=== PATIENT | female | born 1945 | race African-American/Black ===

== ENCOUNTER 2022-07-03 13:52 | Inpatient (IN) | payer MEDICARE, SELFPAY ==
[2022-07-03] VITALS (46 sets, daily range): BP systolic 148–164; BP diastolic 87–101; PULSE 52–112; RESP 10–28; TEMP 36.3–36.5; O2SAT 96–97; BMI 26.6
--- NOTE | 2022-07-03 14:11 | ECG_ITS ---
[facility] Test Date: 2022-07-03 Pat Name: Latonia Major Department: Room: Gender: Female Bioinformatics Associate: : 1945 Requested By: Darek Lopez Order Number: [id number] Yoel MD: Vivian Niño M.D. Measurements Intervals Merkel Rate: 65 P: 64 OK: 184 QRS: -11 QRSD: 100 T: -11 QT: 405 QTc: 423 Interpretive Statements SINUS RHYTHM VOLTAGE CRITERIA FOR LVH [MEETS CRITERIA IN ONE OF: R(aVL), S(V1), R(V5), R(V5/V6)+S(V1)] POSSIBLE SEPTAL MYOCARDIAL INFARCTION , OF INDETERMINATE AGE [30 ms Q WAVE IN V1/V2] No previous ECG available for comparison Electronically Signed On 07-03-2022 22:07:41 EMERGENCY REGISTRAR by Vivian Niño M.D. [id number]
--- NOTE | 2022-07-03 14:11 | CTR_ITS ---
PROCEDURE INFORMATION: Exam: CT Head Without Contrast Exam date and time: 07/03/2022 2:22 PM Age: 77 years old Clinical indication: Stroke-like symptoms; Altered mental status/memory loss; Additional info: Symptoms of acute stroke TECHNIQUE: Imaging protocol: Computed tomography of the head without contrast. Radiation optimization: All CT scans at this facility use at least one of these dose optimization techniques: automated exposure control; mA and/or kV adjustment per patient size (includes targeted exams where dose is matched to clinical indication); or iterative reconstruction. Other protocol: This patient has received 0 known CTs and 0 known cardiac nuclear medicine studies in the 12 months prior to the current study. Other technique: STROKE PROTOCOL was implemented. COMPARISON: No relevant prior studies available. RADIATION DOSE METRICS: Total DLP (mGy-cm): 1053.84 FINDINGS: Brain: Moderate to severe central and cortical atrophy as well as small vessel ischemic disease. No intracranial hemorrhage. No areas of abnormal edema. No midline shift. Cerebral ventricles: No ventriculomegaly. Paranasal sinuses: Visualized sinuses are unremarkable. No fluid levels. Mastoid air cells: Visualized mastoid air cells are well aerated. Bones/joints: Unremarkable. No acute fracture. Soft tissues: Unremarkable. CT/CT head thrombolytic [id number] IMPRESSION: No acute intracranial abnormality. ASSESSMENT: ASPECTS ([place] Stroke Program Early CT Score) is 10.
--- NOTE | 2022-07-03 14:12 | PC.PHAR ---
pts son states the pt takes no rx or otc medications-states they were just passing through [place]-states they try to stay away from medications
--- NOTE | 2022-07-03 14:23 | W.ED.WEAKNES ---
HPI - Weakness General: Chief complaint: Weakness Stated complaint: weakness Time Seen by Provider: 07/03/22 13:54 History of Present Illness: 77-year-old female no regular medical care presenting to the emergency department as a code stroke. Son states that at 1330 hrs. today the patient had a change in her speech. He describes a change in speech as slurring of words and short phrases rather than full sentences with a tired appearance. States that this is new for her as of that time. Additionally has been complaining of some left arm/chest pain during that time. Patient recently moved to [place] to live with her son. She previously lived in [place] and had a stroke in 2018 in [place] where she has residual deficits in her right lower extremity. She drags her lower extremity on the right when she walks secondary to those events. Has not seen a doctor regularly or been placed on a medication for stroke prophylaxis or further intervention. Activated as code stroke, sent to CT. Associated symptoms: Denies chest pain, chills, dysuria, easy bruising, fever(s), headache(s) or nausea Review of Systems General: Reports: 10 or more systems reviewed and unremarkable except in HPI and below Const: Denies: fever(s) or chills Eyes: Denies: change in vision or blurry vision ENMT: Denies: throat pain or uvular edema Card: Denies: chest pain or palpitations Resp: Denies: dyspnea or productive cough GI: Denies: abdominal pain or nausea : Denies: flank pain, difficulty voiding or dysuria Musc: Reports: extremity pain (Left shoulder); Denies: neck pain or back pain Skin/Breast: Denies: rash or pruritus Neuro: Reports: weakness in extremities; Denies: headache(s) or numbness in extremities Psych: Reports: other (Change in speech per HPI); Denies: anxiety or depression Endo: Reports: tired all the time; Denies: polyuria Raymundo/Lymph: Denies: easy bruising or easy bleeding Physical Exam Const: COMMON NORMALS: no acute distress and alert GENERAL APPEARANCE: ill appearing and frail appearing ORIENTATION/CONSCIOUSNESS: Yes oriented to person and Yes oriented to place HENMT: COMMON NORMALS: normocephalic and atraumatic HEAD & SCALP: normocephalic and atraumatic MOUTH: Normal oral and palatal mucosa present THROAT: no uvular edema Eye: COMMON NORMALS: Equal, round and reactive pupils present, EOMs intact bilaterally and conjunctivae normal CONJUNCTIVA: Yes conjunctivae normal PUPIL: Yes Equal, round and reactive pupils present Neck/C-Spine: COMMON NORMALS: full ROM and supple Chest: COMMONS NORMALS: normal inspection of the chest and normal palpation of entire chest wall Resp: COMMON NORMALS: normal respiratory effort and No retractions Cardio: COMMON NORMALS: regular rate and Peripheral pulses 2+ throughout RATE: regular rate PERIPHERAL PULSES: Peripheral pulses 2+ throughout GI: COMMON NORMALS: Normal to inspection, nondistended, normoactive bowel sounds present, Soft to palpation and non-tender PALPATION: Yes Soft to palpation : COMMON NORMALS: Yes no CVA tenderness BLADDER/KIDNEY EXAM: Yes no CVA tenderness Back/Pelvis: COMMON NORMALS: no CVA tenderness and thoracic and lumbar spine normal to inspection Neuro: DAVID COMA SCALE: document GCS findings SENSORIUM/ORIENTATION: Yes alert, Yes oriented to person and Yes oriented to place CRANIAL NERVES: Yes CN normal except as noted and Yes vestibular testing SPEECH: speech normal and abnormal speech GAIT: Yes Unable to assess gait SENSORY EXAM: Yes extremities and Trunk sensory exam abnormal OTHER: NIH stroke scale of 8 (3 for right lower extremity) Psych: COMMON NORMALS: mental status grossly normal and Normal thought process present THOUGHT PROCESS: Normal thought process present Skin: COMMON NORMALS: no rashes or lesions noted and no wounds GENERAL SKIN EXAM: no rashes or lesions noted Course Vital Signs: Vital signs: Vital Signs Temperature 97.7 F 07/03/22 13:56 Pulse Rate 80 07/03/22 13:56 Respiratory Rate 20 H 07/03/22 13:56 Blood Pressure 151/87 07/03/22 13:56 Pulse Oximetry 96 07/03/22 13:56 Oxygen Delivery Me thod 07/03/22 13:56 MDM - Weakness Medical Decision Making 77-year-old female no medical care in previous chart presenting as a code stroke to the emergency department. Primary language of Creole was somewhat a barrier to interpretation of the patient's responses during NIH stroke scale calculation. Son was helpful in interpretation and communication with the patient. Telestroke activated and communicates with the patient. Telestroke neurologist speaks Creole to the patient and patient seems to think that symptoms started 3 days ago rather than just prior to arrival. CT negative. CTA demonstrated possible M1 lesion. Telemetry neuro again consulted and recommends inpatient admission of this patient, no tPA administration, and MRI for further characterization of intracranial findings. Other findings in the emergency department today not demonstrating source of diminished mental status including symptomatic anemia, infection, toxidrome, or urinary tract infection. X-ray of the shoulder demonstrates chronic degenerative changes. No other findings risk on assisting immediate intervention. This patient will be admitted to the hospital service for further intervention and treatment, pending delta troponin. Lab Data 07/03/22 14:17 07/03/22 14:[address] 07/03/22 14:11 IMPRESSION: No acute intracranial abnormality. ASSESSMENT: ASPECTS ([place] Stroke Program Early CT Score) is 10. Head/Neck CTA 07/03/22 15:06 IMPRESSION: No large vessel stenosis or occlusion. About 1 mm thick noncalcified focal filling defect in the left M1 possibly represents a noncalcified plaque though a tiny thrombus cannot be entirely excluded. IMPRESSION: No carotid stenosis. Dilatation of the ascending aorta up to 4.2 cm, aortic arch up to 3.3 cm. REFERENCES: NASCET CRITERIA. The degree of stenosis in the cervical segment of the internal carotid artery is based on NASCET criteria. Normal is no stenosis. Mild is less than 50% stenosis. Moderate is 50-69% stenosis. Severe is 70% to 99% stenosis. Total occlusion is no detectable patent lumen. Shoulder X-Ray 07/03/22 15:57 IMPRESSION: 1. 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 2. Increased radiolucency in the surgical neck and adjacent portions of the humeral head suggesting possible multiple myeloma versus metastatic disease versus other pathology. 3. CT left shoulder may be helpful rule out occult pathologic fracture. 4. Mild left acromioclavicular arthropathy. Laboratory Results WBC 5.6 10^3/uL (4.0-10.0) 07/03/22 14:17 RBC 5.02 10^6/uL (4.1-5.3) 07/03/22 14:17 Hgb 13.7 g/dL (11.5-15.3) 07/03/22 14:17 Hct 43.7 % (37.0-47.0) 07/03/22 14:17 MCV 87.1 fl (81-99) 07/03/22 14:17 MCH 27.3 pg (28.0-34.0) L 07/03/22 14:17 MCHC 31.4 g/dL (30.0-36.0) 07/03/22 14:17 RDW 14.3 % (12.1-15.1) 07/03/22 14:17 Plt Count 186 10^3/cmm (130-400) 07/03/22 14:17 MPV 12.3 fL (7.4-10.4) H 07/03/22 14:17 Neut % (Auto) 54.8 % 07/03/22 14:17 Lymph % (Auto) 33.6 % 07/03/22 14:17 [place] % (Auto) 9.3 % 07/03/22 14:17 Eos % (Auto) 1.4 % 07/03/22 14:17 Baso % (Auto) 0.5 % 07/03/22 14:17 Neut # (Auto) 3.08 10^3/uL (1.8-7.7) 07/03/22 14:17 Lymph # (Auto) 1.9 10^3/uL (0.8-4.8) 07/03/22 14:17 [place] # (Auto) 0.5 10^3/uL (0.2-0.9) 07/03/22 14:17 Eos # (Auto) 0.1 10^3/uL (0.0-0.8) 07/03/22 14:17 Baso # (Auto) 0.0 10^3/uL (0.0-0.1) 07/03/22 14:17 Nucleated RBC % (auto) 0 % 07/03/22 14:17 Nucleated RBCs # 0.0 /100WBC 07/03/22 14:17 PT 13.40 SECONDS (12.1-14.9) 07/03/22 15:10 INR 0.99 (0.8-1.2) 07/03/22 15:10 APTT 31.0 SECONDS (23.9-36.7) 07/03/22 15:10 Sodium 137 mmol/L (136-145) 07/03/22 14:17 Potassium 4.4 mmol/L (3.5-5.1) 07/03/22 14:17 Chloride 102 mmol/L (98-107) 07/03/22 14:17 Carbon Dioxide 23 mmol/L (22-29) 07/03/22 14:17 Anion Gap 16.4 (5-19) 07/03/22 14:17 BUN 18 mg/dL (8-23) 07/03/22 14:17 Creatinine 0.7 mg/dL (0.5-0.9) 07/03/22 14:17 GFR Calculation Not Reportable 07/03/22 14:17 Glucose 90 mg/dL (65-115) 07/03/22 14:17 Calculated Osmolality 285 mOsm/kg (285-295) 07/03/22 14:17 Calcium 9.2 mg/dL (8.5-10.5) 07/03/22 14:17 Total Bilirubin 0.2 mg/dL (0.15-1.2) 07/03/22 14:17 AST 17 U/L (0-32) 07/03/22 14:17 ALT 9 U/L (0-33) 07/03/22 14:17 Alkaline Phosphatase 66 U/L (35-105) 07/03/22 14:17 Troponin T Baseline 11 ng/L (0-10) H 07/03/22 15:10 Total Protein 7.7 g/dL (6.6-8.7) 07/03/22 14:17 Albumin 4.3 g/dL (3.5-5.2) 07/03/22 14:17 Globulin 3.4 g/dL (1.3-4.6) 07/03/22 14:17 Urine Color Straw (Yellow) 07/03/22 15:55 Urine Appearance Clear (CLEAR) 07/03/22 15:55 Urine pH 7 (5-7) 07/03/22 15:55 Ur Specific [place] 1.005 (1.005-1.030) 07/03/22 15:55 Urine Protein Neg (Negative) 07/03/22 15:55 Urine Glucose (UA) Norm (Normal) 07/03/22 15:55 Urine Ketones Negative (Negative) 07/03/22 15:55 Urine Blood Neg (Negative) 07/03/22 15:55 Urine Nitrate Negative (Negative) 07/03/22 15:55 Urine Bilirubin Neg (Negative) 07/03/22 15:55 Urine Urobilinogen Norm mg/dL (Negative) 07/03/22 15:55 Ur Leukocyte Esterase Negative (Negative) 07/03/22 15:55 Acetaminophen < 5.0 ug/mL (10-30) L 07/03/22 15:10 Ethyl Alcohol < 10 mg/dL (0-10) 07/03/22 14:17 Discharge Plan Discharge Patient Disposition: Admitted As Inpatient Admit Provider: Pascual Fong Clinical Impression: Speech abnormality, CVA (cerebral vascular accident) Condition: Stable Coding Level of Care Code ED [employer] Product Development Manager for Emily Rowley
[2022-07-03 14:33] LABS: Basophils % 0.5 %; Eosinophils # 0.1 10^3/uL (0.0-0.8); Eosinophils % 1.4 %; Hematocrit 43.7 % (37.0-47.0); Hemoglobin 13.7 g/dL (11.5-15.3); Lymphocytes # 1.9 10^3/uL (0.8-4.8); Lymphocytes % 33.6 %; Mean Corpuscular HGB Conc 31.4 g/dL (30.0-36.0); Mean Corpuscular Hemoglobin 27.3 pg (28.0-34.0); Mean Corpuscular Volume 87.1 fl (81-99); Mean Platelet Volume 12.3 fL (7.4-10.4); Monocytes # 0.5 10^3/uL (0.2-0.9); Monocytes % 9.3 %; Neutrophils # 3.08 10^3/uL (1.8-7.7); Neutrophils % 54.8 %; Nucleated Red Blood Cells % 0 %; Platelet Count 186 10^3/cmm (130-400); Red Blood Count 5.02 10^6/uL (4.1-5.3); Red Cell Distribution Width 14.3 % (12.1-15.1); White Blood Count 5.6 10^3/uL (4.0-10.0)
[2022-07-03 15:00] LABS: Alanine Aminotransferase 9 U/L (0-33); Albumin Level 4.3 g/dL (3.5-5.2); Alkaline Phosphatase 66 U/L (35-105); Blood Urea Nitrogen 18 mg/dL (8-23); Calcium 9.2 mg/dL (8.5-10.5); Carbon Dioxide 23 mmol/L (22-29); Chloride 102 mmol/L (98-107); Creatinine Clr Calc Pharmacy 62.0363; Globulin 3.4 g/dL (1.3-4.6); Glucose 90 mg/dL (65-115); Osmolality Calculated 285 mOsm/kg (285-295); Sodium 137 mmol/L (136-145); Total Bilirubin 0.2 mg/dL (0.15-1.2); Total Protein 7.7 g/dL (6.6-8.7)
[2022-07-03 15:03] LABS: Alcohol Level < 10 mg/dL (0-10)
[2022-07-03 15:04] LABS: Anion Gap 16.4 (5-19); Aspartate Amino Transferase 17 U/L (0-32); Potassium 4.4 mmol/L (3.5-5.1)
--- NOTE | 2022-07-03 15:06 | CTR_ITS ---
PROCEDURE INFORMATION: Exam: CTA Head With Contrast, Arteriography Exam date and time: 07/03/2022 3:16 PM Age: 77 years old Clinical indication: Cognitive deficit; Altered mental status; Additional info: Eval atheroslcerosis and sah, ischemic penumbra, code stroke TECHNIQUE: Imaging protocol: Computed tomographic angiography of the head with contrast. Exam focused on the arteries. 3D rendering (Not supervised by radiologist): MIP and/or 3D reconstructed images were created by the technologist. Radiation optimization: All CT scans at this facility use at least one of these dose optimization techniques: automated exposure control; mA and/or kV adjustment per patient size (includes targeted exams where dose is matched to clinical indication); or iterative reconstruction. Contrast material: OMNI 350; Contrast volume: 100 ml; Contrast route: INTRAVENOUS (IV); Other protocol: This patient has received [address] and 0 known cardiac nuclear medicine studies in the 12 months prior to the current study. COMPARISON: CT head thrombolytic [id number] 07/03/2022 2:22 PM RADIATION DOSE METRICS: Total DLP (mGy-cm): 1690.6 FINDINGS: ANTERIOR CIRCULATION: Right internal carotid artery: Intracranial segment is patent with mild calcified atherosclerotic plaque in the clinoid segment with no significant stenosis. No aneurysm. Right middle cerebral artery: No occlusion or significant stenosis. No aneurysm. Right anterior cerebral artery: No occlusion or significant stenosis. No aneurysm. Left internal carotid artery: Intracranial segment is patent with mild calcified atherosclerotic plaque in the cavernous and clinoid segments with no significant stenosis. No aneurysm. Left middle cerebral artery: No occlusion or significant stenosis. About 1 mm thick filling defect adherent to the inferolateral wall of distal M1 segment noted on series 9, image 268 and series 14, image 66. No aneurysm. Left anterior cerebral artery: No occlusion or significant stenosis. No aneurysm. POSTERIOR CIRCULATION: Right vertebral artery: No occlusion or significant stenosis. No aneurysm. Left vertebral artery: No occlusion or significant stenosis. No aneurysm. Basilar artery: No occlusion or significant stenosis. No aneurysm. Right posterior cerebral artery: No occlusion or significant stenosis. No aneurysm. Left posterior cerebral artery: No occlusion or significant stenosis. No aneurysm. Brain: No definite mass, mass effect, or midline shift. Cerebral ventricles: No ventriculomegaly. Bones/joints: Unremarkable. No acute fracture. Soft tissues: Unremarkable. PROCEDURE INFORMATION: Exam: CTA Neck With Contrast Exam date and time: 07/03/2022 3:16 PM Age: 77 years old Clinical indication: Cognitive deficit; Altered mental status; Additional info: Eval atheroslcerosis and sah, ischemic penumbra, code stroke TECHNIQUE: Imaging protocol: Computed tomographic angiography of the neck with contrast. 3D rendering (Not supervised by radiologist): MIP and/or 3D reconstructed images were created by the technologist. Radiation optimization: All CT scans at this facility use at least one of these dose optimization techniques: automated exposure control; mA and/or kV adjustment per patient size (includes targeted exams where dose is matched to clinical indication); or iterative reconstruction. Contrast material: OMNI 350; Contrast volume: 100 ml; Contrast route: INTRAVENOUS (IV); Other protocol: This patient has received [address] and 0 known cardiac nuclear medicine studies in the 12 months prior to the current study. COMPARISON: CT head thrombolytic [id number] 07/03/2022 2:22 PM RADIATION DOSE METRICS: Total DLP (mGy-cm): 1690.6 FINDINGS: Right common carotid artery: No significant stenosis. No dissection or occlusion. Right internal carotid artery: Extracranial segment is patent with no significant stenosis. No dissection or occlusion. Right external carotid artery: No occlusion or significant stenosis. Left common carotid artery: No significant stenosis. No dissection or occlusion. Left internal carotid artery: Extracranial segment is patent with no significant stenosis. No dissection or occlusion. Left external carotid artery: No occlusion or significant stenosis. Right vertebral artery: No significant stenosis. No dissection or occlusion. Left vertebral artery: No significant stenosis. No dissection or occlusion. Aorta: The ascending aorta is dilated to 4.2 cm with no dissection. The aortic arch measures 3.3 cm. Descending aorta measures 2.9 cm. Soft tissues: No significant soft tissue swelling. Bones/joints: No acute fracture. CT/CT angio headneck* [id number] IMPRESSION: No large vessel stenosis or occlusion. About 1 mm thick noncalcified focal filling defect in the left M1 possibly represents a noncalcified plaque though a tiny thrombus cannot be entirely excluded. IMPRESSION: No carotid stenosis. Dilatation of the ascending aorta up to 4.2 cm, aortic arch up to 3.3 cm. REFERENCES: NASCET CRITERIA. The degree of stenosis in the cervical segment of the internal carotid artery is based on NASCET criteria. Normal is no stenosis. Mild is less than 50% stenosis. Moderate is 50-69% stenosis. Severe is 70% to 99% stenosis. Total occlusion is no detectable patent lumen.
[2022-07-03 15:36] LABS: INR 0.99 (0.8-1.2)
--- NOTE | 2022-07-03 15:57 | XRR_ITS ---
PROCEDURE INFORMATION: Exam: XR Left Shoulder Exam date and time: 07/03/2022 4:03 PM Age: 77 years old Clinical indication: Pain; Shoulder; Left; Additional info: Shoulder pain, eval FX TECHNIQUE: Imaging protocol: Radiologic exam of the Left shoulder. Views: 2 or more views. 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 Increased radiolucency in the surgical neck and adjacent portions of the humeral head suggesting possible multiple myeloma versus metastatic disease versus other pathology. CT left shoulder may be helpful rule out occult pathologic fracture. Mild left acromioclavicular arthropathy. Soft tissues: See Bones/joints finding. XR/XR shoulder LT min 2V* [id number] IMPRESSION: 1. 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 2. Increased radiolucency in the surgical neck and adjacent portions of the humeral head suggesting possible multiple myeloma versus metastatic disease versus other pathology. 3. CT left shoulder may be helpful rule out occult pathologic fracture. 4. Mild left acromioclavicular arthropathy.
[2022-07-03] MEDS: aspirin 325 mg Tablet PO (16:03)
[2022-07-03] MEDS: acetaminophen 500 mg Tablet 1000 MG PO (16:03)
[2022-07-03 16:13] LABS: Add Urine Microscopic? NO; Charge for UA Resulting for Rev
[2022-07-03 16:23] LABS: Bilirubin Urine Neg (Negative); Blood Urine Neg (Negative); Glucose Urine UA Norm (Normal); Ketones Urine Negative (Negative); Leukocyte Esterase Urine Negative (Negative); Nitrate Urine Negative (Negative); Protein Urine Neg (Negative); Specific Gravity, Urine 1.005 (1.005-1.030); Urine Appearance Clear (CLEAR); Urine Color Straw (Yellow); Urobilinogen Urine Norm (Negative); pH Urine 7 (5-7)
[2022-07-03 16:29] LABS: Troponin(5th) Baseline 11 ng/L (0-10)
[2022-07-03 16:30] LABS: Acetaminophen < 5.0 ug/mL (10-30)
[2022-07-03 18:25] LABS: Troponin 5 2HR 11.69 ng/L (0-10)
--- NOTE | 2022-07-03 18:26 | CTR_ITS ---
PROCEDURE INFORMATION: Exam: CT Left Upper Extremity Without Contrast, Shoulder Exam date and time: 07/03/2022 6:58 PM Age: 77 years old Clinical indication: Pain; Shoulder; Left; Additional info: Eval suspicious lesions of left shoulder TECHNIQUE: Imaging protocol: Computed tomography of the Left upper extremity without contrast. Exam focused on the shoulder. Sagittal and coronal reformatted images were created and reviewed. Radiation optimization: All CT scans at this facility use at least one of these dose optimization techniques: automated exposure control; mA and/or kV adjustment per patient size (includes targeted exams where dose is matched to clinical indication); or iterative reconstruction. Other protocol: This patient has received 2 known [address]s and 0 known cardiac nuclear medicine studies in the 12 months prior to the current study. COMPARISON: CR (CHEST, ) 07/03/2022 4:03 PM RADIATION DOSE METRICS: Total DLP (mGy-cm): 286.21 FINDINGS: Bones/joints: Linear lucency and cortical disruption at the surgical neck of the humerus best seen on the coronal images (series 6, image 37). Findings are suspicious for a nondisplaced fracture. No lytic or sclerotic bony lesions. No dislocation. Bones are mildly osteopenic. Large osteophytes with subchondral cysts/subchondral sclerosis and near complete loss of joint space height at the left glenohumeral joint. Mild hypertrophic changes of the left acromioclavicular joint. Moderate left shoulder joint effusion. Soft tissues: No soft tissue swelling. No radiopaque foreign body. Lungs: Dependent atelectasis in the visualized left lung. CT/CT shoulder LT wo con* [id number] IMPRESSION: 1. Linear lucency and cortical disruption at the surgical neck of the humerus best seen on the coronal images. Findings are suspicious for a nondisplaced fracture. 2. No lytic or sclerotic bony lesions. 3. Marked degenerative change at the left glenohumeral joint and mild degenerative change at the left acromioclavicular joint. 4. Moderate left shoulder joint effusion. 5. Incidental/nonacute findings are listed in the report.
--- NOTE | 2022-07-03 18:30 | ED_ITS ---
HPI - Weakness General: Chief complaint: Weakness Stated complaint: weakness Time Seen by Provider: 07/03/22 13:54 History of Present Illness: This is a addendum to the previous note. Patient's left shoulder x-ray demonstrating suspicious lesions. CT ordered to better characterize these lesions. This finding communicated to on-call hospitalist taking over the patient's care. Additionally delta troponin pending at time of signout. Oncoming emergency physician will monitor delta troponin and reach out as necessary for further interventions. Course Vital Signs: Vital signs: Vital Signs Temperature 97.7 F 07/03/22 13:56 Pulse Rate 80 07/03/22 13:56 Respiratory Rate 20 H 07/03/22 13:56 Blood Pressure 151/87 07/03/22 13:56 Pulse Oximetry 96 07/03/22 13:56 Oxygen Delivery Me thod 07/03/22 13:56 MDM - Weakness Medical Decision Making Addendum note, Free text see previous note Lab Data 07/03/22 14:17 07/03/22 14:[address] 07/03/22 14:11 IMPRESSION: No acute intracranial abnormality. ASSESSMENT: ASPECTS ([place] Stroke Program Early CT Score) is 10. Head/Neck CTA 07/03/22 15:06 IMPRESSION: No large vessel stenosis or occlusion. About 1 mm thick noncalcified focal filling defect in the left M1 possibly represents a noncalcified plaque though a tiny thrombus cannot be entirely excluded. IMPRESSION: No carotid stenosis. Dilatation of the ascending aorta up to 4.2 cm, aortic arch up to 3.3 cm. REFERENCES: NASCET CRITERIA. The degree of stenosis in the cervical segment of the internal carotid artery is based on NASCET criteria. Normal is no stenosis. Mild is less than 50% stenosis. Moderate is 50-69% stenosis. Severe is 70% to 99% stenosis. Total occlusion is no detectable patent lumen. Shoulder X-Ray 07/03/22 15:57 IMPRESSION: 1. 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 2. Increased radiolucency in the surgical neck and adjacent portions of the humeral head suggesting possible multiple myeloma versus metastatic disease versus other pathology. 3. CT left shoulder may be helpful rule out occult pathologic fracture. 4. Mild left acromioclavicular arthropathy. Laboratory Results WBC 5.6 10^3/uL (4.0-10.0) 07/03/22 14:17 RBC 5.02 10^6/uL (4.1-5.3) 07/03/22 14:17 Hgb 13.7 g/dL (11.5-15.3) 07/03/22 14:17 Hct 43.7 % (37.0-47.0) 07/03/22 14:17 MCV 87.1 fl (81-99) 07/03/22 14:17 MCH 27.3 pg (28.0-34.0) L 07/03/22 14:17 MCHC 31.4 g/dL (30.0-36.0) 07/03/22 14:17 RDW 14.3 % (12.1-15.1) 07/03/22 14:17 Plt Count 186 10^3/cmm (130-400) 07/03/22 14:17 MPV 12.3 fL (7.4-10.4) H 07/03/22 14:17 Neut % (Auto) 54.8 % 07/03/22 14:17 Lymph % (Auto) 33.6 % 07/03/22 14:17 [place] % (Auto) 9.3 % 07/03/22 14:17 Eos % (Auto) 1.4 % 07/03/22 14:17 Baso % (Auto) 0.5 % 07/03/22 14:17 Neut # (Auto) 3.08 10^3/uL (1.8-7.7) 07/03/22 14:17 Lymph # (Auto) 1.9 10^3/uL (0.8-4.8) 07/03/22 14:17 [place] # (Auto) 0.5 10^3/uL (0.2-0.9) 07/03/22 14:17 Eos # (Auto) 0.1 10^3/uL (0.0-0.8) 07/03/22 14:17 Baso # (Auto) 0.0 10^3/uL (0.0-0.1) 07/03/22 14:17 Nucleated RBC % (auto) 0 % 07/03/22 14:17 Nucleated RBCs # 0.0 /100WBC 07/03/22 14:17 PT 13.40 SECONDS (12.1-14.9) 07/03/22 15:10 INR 0.99 (0.8-1.2) 07/03/22 15:10 APTT 31.0 SECONDS (23.9-36.7) 07/03/22 15:10 Sodium 137 mmol/L (136-145) 07/03/22 14:17 Potassium 4.4 mmol/L (3.5-5.1) 07/03/22 14:17 Chloride 102 mmol/L (98-107) 07/03/22 14:17 Carbon Dioxide 23 mmol/L (22-29) 07/03/22 14:17 Anion Gap 16.4 (5-19) 07/03/22 14:17 BUN 18 mg/dL (8-23) 07/03/22 14:17 Creatinine 0.7 mg/dL (0.5-0.9) 07/03/22 14:17 GFR Calculation Not Reportable 07/03/22 14:17 Glucose 90 mg/dL (65-115) 07/03/22 14:17 Calculated Osmolality 285 mOsm/kg (285-295) 07/03/22 14:17 Calcium 9.2 mg/dL (8.5-10.5) 07/03/22 14:17 Total Bilirubin 0.2 mg/dL (0.15-1.2) 07/03/22 14:17 AST 17 U/L (0-32) 07/03/22 14:17 ALT 9 U/L (0-33) 07/03/22 14:17 Alkaline Phosphatase 66 U/L (35-105) 07/03/22 14:17 Troponin T Baseline 11 ng/L (0-10) H 07/03/22 15:10 Total Protein 7.7 g/dL (6.6-8.7) 07/03/22 14:17 Albumin 4.3 g/dL (3.5-5.2) 07/03/22 14:17 Globulin 3.4 g/dL (1.3-4.6) 07/03/22 14:17 Urine Color Straw (Yellow) 07/03/22 15:55 Urine Appearance Clear (CLEAR) 07/03/22 15:55 Urine pH 7 (5-7) 07/03/22 15:55 Ur Specific [place] 1.005 (1.005-1.030) 07/03/22 15:55 Urine Protein Neg (Negative) 07/03/22 15:55 Urine Glucose (UA) Norm (Normal) 07/03/22 15:55 Urine Ketones Negative (Negative) 07/03/22 15:55 Urine Blood Neg (Negative) 07/03/22 15:55 Urine Nitrate Negative (Negative) 07/03/22 15:55 Urine Bilirubin Neg (Negative) 07/03/22 15:55 Urine Urobilinogen Norm mg/dL (Negative) 07/03/22 15:55 Ur Leukocyte Esterase Negative (Negative) 07/03/22 15:55 Acetaminophen < 5.0 ug/mL (10-30) L 07/03/22 15:10 Ethyl Alcohol < 10 mg/dL (0-10) 07/03/22 14:17 Discharge Plan Discharge Patient Disposition: Admitted As Inpatient Admit Provider: Pascual Fong Clinical Impression: Speech abnormality, CVA (cerebral vascular accident) Condition: Stable Coding Level of Care Code ED Director Client Services for Emily Rowley
[2022-07-03 18:41] LABS: Troponin 5 2HR Delta 0.69 ABS# (0-10)
[2022-07-03 19:05] LABS: Amphetamines Screen Urine Negative (Negative); Barbiturates Screen Urine Negative (Negative); Benzodiazepines Screen Urine Negative (Negative); Cocaine Screen Urine Negative (Negative); Opiate Screen Urine Negative (Negative); PCP Screen Urine Negative (Negative); THC Screen Urine Negative (Negative)
--- NOTE | 2022-07-03 19:13 | PM.HP ---
Providers/Chief Complaint Admitting Physician: Pascual Fong Chief Complaint: weakness History of Present Illness 77-year-old lady who is traveling here with her son from [place], was brought into the hospital for evaluation after changes in her speech around 1330 as per history from her son, slurring his speech and speaking short phrases. Stroke code was called, head CT without acute abnormality, and she was assessed by telestroke neurology. CT of the head without large vessel stenosis or occlusion. About 1 mm thick noncalcified focal filling defect in the left M1 possibly representing noncalcified plaque though a tiny thrombus cannot be entirely excluded. No carotid stenosis. Dilation of the ascending aorta up to 4.2 cm, aortic arch up to 3.3 cm. Admission was recommended by neurology for further work-up including MRI. Her first language is Creole although she is able to communicate in Gabonese. Communication is made more difficult by her aphasia, with her son having left the ER she states to get her diaper. She tells me that she had previously had a stroke back in [place], and has had residual weakness on the right side, particularly the right leg. Right leg also has been light . She tells me that her trouble speaking is not new, cannot tell me how long, but states a while . She says she manages it by speaking slowly. He tells me she has also been having pain in her left shoulder making her unable to raise her left arm. She also has pain in her central lower back. She tells me that she is a [employer] woman and as such she does not smoke or drink any alcohol. When asked, she says that in case of cardiopulmonary arrest she would be okay with CPR/attempted resuscitation. Review of Systems Const: Denies: fever(s) or chills Eyes: Denies: eye redness Card: Denies: chest pain, edema, pre-syncope or dyspnea on exertion Resp: Denies: dyspnea GI: Denies: abdominal pain, nausea, vomiting, diarrhea, constipation, hematochezia or melena : Denies: dysuria or urinary frequency Musc: Reports: back pain and joint pain (L shoulder); Denies: joint swelling or joint redness Skin/Breast: Denies: rash or new lesions Neuro: Reports: numbness in extremities (Chronic and right leg), weakness in extremities (Chronic and right leg), difficulty walking, Slurred speech present and difficulty communicating thoughts; Denies: headache(s), dizziness, confusion or seizure-like activity Raymundo/Lymph: Denies: easy bleeding Medications/Allergies Home Medications Medication Instructions Recorded Confirmed Last Taken Type No Known Home Medications 07/03/22 07/03/22 Unknown History Allergies Allergy/AdvReac Type Severity Reaction Status Date / Time No Known Allergies Allergy Verified 07/03/22 14:12 PFSH Acute PFSH: Medical History CVA (cerebral vascular accident) Left shoulder pain Surgical History No pertinent past surgical history Family History Other No significant family history Social History Smoking and tobacco status: never smoked Alcohol intake: never Household members: other Details: Traveling here from [place] with her son Vitals/I&O/Wt Last Vital Signs Temp 97.7 F 07/03/22 13:56 Pulse 67 07/03/22 19:10 Resp 18 07/03/22 19:10 BP 164/89 07/03/22 19:10 Pulse Ox 96 07/03/22 19:10 O2 Del Method 07/03/22 13:56 Weight last 48 hrs Weight 77.111 kg Physical Exam Const: COMMON NORMALS: alert GENERAL APPEARANCE: cooperative ORIENTATION/CONSCIOUSNESS: Yes awake HENMT: COMMON NORMALS: oropharynx normal Neck/C-Spine: COMMON NORMALS: no JVD Resp: COMMON NORMALS: normal respiratory effort and clear to auscultation bilaterally AUSCULTATION: clear to auscultation bilaterally Cardio: COMMON NORMALS: no JVD, regular rhythm, S1 normal heart sound present, S2 normal heart sound present and No murmurs present (Cardio) RHYTHM: regular rhythm HEART SOUNDS: S1 normal heart sound present and S2 normal heart sound present GI: COMMON NORMALS: Normal to inspection, nondistended, normoactive bowel sounds present, Soft to palpation and non-tender PALPATION: Yes Soft to palpation Extremity: COMMON NORMALS: no joint enlargement and no pedal edema Neuro: COMMON NORMALS: patient oriented x3 SENSORIUM/ORIENTATION: Yes alert MENINGEAL SIGNS: Yes no meningeal signs SPEECH: abnormal speech and expressive aphasia SENSORY EXAM: Yes Normal double simultaneous stimulation for sensation and other (Reports diminished sensation on the left) MOTOR EXAM: Pronator motor function not present (Right upper extremity.) and Other motor observations present (L shoulder pain, cannot lift arm. ) OTHER: Follows directions although somewhat slowly. No trouble tracking. Visual wagoner intact. No visual extinction. No facial droop noted. Unable to lift right leg off the bed. Movement against gravity on the left. Skin: COMMON NORMALS: no rashes or lesions noted GENERAL SKIN EXAM: no rashes or lesions noted Data 07/03/22 14:17 07/03/22 14:17 A&P Assessment and plan (1) CVA (cerebral vascular accident): 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 Currently reporting her symptoms are aphasia, dysarthria. Head CT, head and neck CTA results appreciated. 1 mm thick noncalcified focal filling defect in M1 possibly noncalcified plaque though tiny thrombus cannot be entirely excluded. Carotids without stenosis. Discussed with her staying in the hospital for further assessments and she is agreeable. Additional assessment recommended by MRI by teleneurology. We will additionally monitor on telemetry with consideration of possible arrhythmia/A-fib, assess with TTE. Monitor blood pressures. Assess cholesterol panel. A1c is requested as well. She has not been on any medications despite prior CVA. Discussing with her aspirin, statin, risk of recurrent CVA she is agreeable to continue with aspirin, start statin. Left shoulder pain appears to be musculoskeletal in nature, but complete troponin EKG series to assess for any cardiac ischemia. Mild troponin elevation noted. EKG with sinus rhythm on my assessment on my assessment. Discussed with ER physician. ER documentation reviewed. (2) Lytic lesion of bone on x-ray: Protracted left shoulder pain, she has difficulty lifting the shoulder. Discussed with ER physician, x-ray obtained, showing increased radiolucency in the surgical neck and adjacent portions of humeral head suggesting possible multiple myeloma versus metastatic disease versus other pathology. Requested serum light chains, SPEP, immunofixation. Additional assessment of back pain as below. CT of the shoulder was obtained by ER physician. (3) Left shoulder pain: As above (4) Aortic ectasia, thoracic: Dilatation of the ascending aorta up to 4.2 cm, aortic arch up to 3.3 cm. Monitor blood pressures. Unclear if has history of hypertension. May benefit from long-term blood pressure optimization. Will need outpatient follow-up for aortic ectasia and blood pressures. (5) Lower back pain: Leg weakness, worse on the right after past CVA, but with back pain and weakness in the left side as well, lytic lesion in the shoulder, will additionally assess with CT thoracic and lumbar spine with consideration of possible myeloma or metastatic malignancy. PT and OT assessment requested Symptomatic management with capsaicin, acetaminophen. (6) Leg weakness: Additional assessment of lower back pain as above. Right-sided weakness after prior CVA, but does appear to have some weakness on the left side as well. Able to bend her leg at the knee but not to lift the leg off the bed. Additional imaging assessment as above. PT, OT assessment. (7) Difficulty in walking: As above Plan Traveling here from [place] with her son Primary language is Creole Attestations Medical Necessity Statement*: Admission of over 2 midnights anticipated for assessment management of recent CVA, left arm pain with possible lytic lesion, or back pain, difficulty ambulating. Diagnoses CVA (cerebral vascular accident) I63.9 Lytic lesion of bone on x-ray M89.9 Left shoulder pain M25.512 Aortic ectasia, thoracic I77.810 Lower back pain M54.50 Leg weakness R29.898 Difficulty in walking R26.2
--- NOTE | 2022-07-03 19:48 | CTR_ITS ---
PROCEDURE INFORMATION: Exam: CT Thoracic Spine Without Contrast Exam date and time: 07/03/2022 10:34 PM Age: 77 years old Clinical indication: Pain in thoracic spine; Additional info: Back pain, leg weakness TECHNIQUE: Imaging protocol: Computed tomography of the thoracic spine without contrast. Sagittal, oblique axial, and coronal reformatted images were created and reviewed. Radiation optimization: All CT scans at this facility use at least one of these dose optimization techniques: automated exposure control; mA and/or kV adjustment per patient size (includes targeted exams where dose is matched to clinical indication); or iterative reconstruction. Other protocol: This patient has received 4 known CTs and 0 known cardiac nuclear medicine studies in the 12 months prior to the current study. COMPARISON: No relevant prior studies available. RADIATION DOSE METRICS: Total DLP (mGy-cm): 938.4 FINDINGS: Bones/joints: Vertebral body height is maintained. No subluxation. Normal bone mineralization. Multilevel degenerative changes of varying severity in the visualized spine. [id number] multilevel foraminal stenosis in the thoracic spine. No acute fracture. Soft tissues: No paravertebral soft tissue abnormality. No radiopaque foreign body. Vasculature: Mild atherosclerotic changes in the visualized arteries. Lungs: Dependent atelectasis in the visualized lungs bilaterally. Thyroid: Large nodule with foci of internal calcification in the isthmus and left thyroid lobe (series 3, image 24). This measures 3.[address]/CT thoracic spin wo con* [id number] IMPRESSION: 1. No acute fracture of the thoracic spine. 2. Multilevel degenerative changes of varying severity in the visualized spine. [id number] multilevel foraminal stenosis in the thoracic spine. 3. Large nodule with foci of internal calcification in the isthmus and left thyroid lobe. Follow-up non-emergent thyroid ultrasound is recommended. 4. Incidental/nonacute findings are listed in the report.
--- NOTE | 2022-07-03 19:48 | CTR_ITS ---
PROCEDURE INFORMATION: Exam: CT Lumbar Spine Without Contrast Exam date and time: 07/03/2022 10:34 PM Age: 77 years old Clinical indication: Low back pain; Additional info: Back pain, leg weakness TECHNIQUE: Imaging protocol: Computed tomography of the lumbar spine without contrast. Sagittal and coronal reformatted images were created and reviewed. Radiation optimization: All CT scans at this facility use at least one of these dose optimization techniques: automated exposure control; mA and/or kV adjustment per patient size (includes targeted exams where dose is matched to clinical indication); or iterative reconstruction. Other protocol: This patient has received 4 known CTs and 0 known cardiac nuclear medicine studies in the 12 months prior to the current study. COMPARISON: No relevant prior studies available. RADIATION DOSE METRICS: Total DLP (mGy-cm): 746.4 FINDINGS: Bones/joints: Vertebral body height is maintained. No subluxation. Normal bone mineralization. Multilevel degenerative changes of varying severity in the visualized spine. Mild spinal canal stenosis at L1-L2, L2-L3, and L5-S1. Moderate spinal canal stenosis at L3-L4 and L4-L5. Multilevel foraminal stenosis of varying severity in the lumbar spine. The right and left sacroiliac joints are unremarkable. No acute fracture. Kidneys and ureters: 2 cysts in the visualized left kidney. The larger is partially visualized and measures 3.6 cm. Vasculature: Mild atherosclerotic changes in the visualized arteries. No evidence for aortic aneurysm. Soft tissues: No paravertebral soft tissue abnormality. No radiopaque foreign body. CT/CT lumbar spine wo con* [id number] IMPRESSION: 1. No acute fracture of the lumbar spine. 2. Multilevel degenerative changes of varying severity in the visualized spine. Mild spinal canal stenosis at L1-L2, L2-L3, and L5-S1. Moderate spinal canal stenosis at L3-L4 and L4-L5. Multilevel foraminal stenosis of varying severity in the lumbar spine. 3. Incidental/nonacute findings are listed in the report. COMMENTS: Consistent with the [employer]'s Incidental Findings Committee white paper (J Am Esther Radiol 2018): Any incidental renal lesion less than 1 cm or classified as too small to characterize, or any incidental cystic renal lesion characterized as simple-appearing, is likely benign. No follow-up imaging is recommended for these lesions per consensus recommendations based on imaging criteria.
--- NOTE | 2022-07-03 20:07 | PC.NURSE ---
Attempt to call son on phone with no answer. Patient is able to answer some parts of the admission assessment, but not all. Patient is able to tell me that she is in the hospital, but does not know she is in [place]. Patient is able to tell me her name and date of . Patient seems to be able to speak many words in Danish, but some words are difficult to understand.
[2022-07-03] MEDS: atorvastatin 40 mg Tablet PO (20:49)
[2022-07-03] MEDS: lidocaine 5% Patch 1 PATCH TOPICAL (20:52)
--- NOTE | 2022-07-03 21:31 | PC.NURSE ---
Son came to bedside and was able to answer more questions. Son states that patient lives with him and patient gets up with his assistance and walker. He states the patient does not take any medications at home. He states he would be interested in some assistance at home.
--- NOTE | 2022-07-03 21:58 | PC.NURSE ---
Patient does not eat meat, dairy, chocolate, or caffeine.
[2022-07-04] VITALS (15 sets, daily range): BP systolic 123–149; BP diastolic 76–88; PULSE 51–80; RESP 16–17; TEMP 36.3–36.6; O2SAT 97–100
[2022-07-04 03:26] LABS: Chol HDL Ratio 3.63 mg/dL (0.0-4.40); Cholesterol 174 mg/dL (0-200); HDL Cholesterol 48 mg/dL (60-100); LDL Cholesterol Calculated 108 mg/dL (50-129); LDL HDL Ratio 2.25 RATIO (0.00-3.22); Triglycerides 90 mg/dL (0-150)
[2022-07-04 03:41] LABS: Estmated Average Glucose 108; Hemoglobin A1C 5.4 % (4.0-6.0)
--- NOTE | 2022-07-04 06:00 | USCV_ITS ---
Latonia Major Age: 77 Gender: F : 1945 Exam Date: 07/04/2022 08:27 Ordering Phys: Pascual Fong MD Technologist: Blane Salgado [place] [facility] [place]: cva BP: 132 / 84 HR: 56 Rhythm: Sinus Technical Quality: Adequate MEASUREMENTS (Male / Female) Normal Values 2D ECHO LV Diastolic Diameter PLAX 3.8 cm 4.2 - 5.9 / 3.9 - 5.3 cm LV Systolic Diameter PLAX 2.7 cm IVS Diastolic Thickness 1.0 cm 0.6 - 1.0 / 0.6 - 0.9 cm IVS Systolic Thickness 1.3 cm LVPW Diastolic Thickness 1.1 cm 0.6 - 1.0 / 0.6 - 0.9 cm LVPW Systolic Thickness 1.4 cm LVOT Diameter 2.0 cm LV Ejection Fraction 2D Teich 55.7 % LV Ejection Fraction MOD 2C 71.9 % LV Ejection Fraction 2C AL 73.3 % LA Diameter 3.1 cm LA Width 3.2 cm Aorta at Sinotubular Diameter 2.9 cm IVC Diameter 2.1 cm M-MODE Aortic Annulus Diameter 3.2 cm LA Ao Ratio MM 0.9 MV E Point Septal Separation 0.5 cm DOPPLER AV Peak Velocity 147.0 cm/s LVOT Peak Velocity 84.0 cm/s AV Area Cont Eq vti 1.8 cm squared AV Area Cont Eq pk 1.8 cm squared MV Area PHT 3.1 cm squared Mitral E to A Ratio 0.8 MV E' Velocity 32.0 cm/s Mitral E to MV E' Ratio 7.0 Mitral E to LV E' Lateral Ratio 7.3 Mitral E to LV E' Septal Ratio 6.9 TR Peak Velocity 202.7 cm/s TR Peak Gradient 16.4 mmHg Right Atrial Pressure 3.0 mmHg Pulmonary Artery Systolic Pressu 19.4 mmHg RV Acceleration Time 0.2 s FINDINGS Left Ventricle Left ventricle is normal in size. LV systolic function is normal with EF 55 to 60%. No regional wall motion abnormalities are seen. Grade 1 diastolic dysfunction Right Ventricle Normal in size and function. Right Atrium Normal in size. No evidence of interatrial shunting seen. Left Atrium Normal in size Mitral Valve Structurally normal mitral valve. Mild mitral regurgitation Aortic Valve Structurally normal aortic valve. No significant stenosis. Trace aortic regurgitation Tricuspid Valve Mild tricuspid regurgitation. Pulmonary artery systolic pressure is normal Pulmonic Valve Mild pulmonic regurgitation. Pericardium Normal Aorta Normal in size IVC Appears to be normal CONCLUSIONS LV systolic function is normal with EF of 55 to 60%. Grade 1 diastolic dysfunction Bubble study does not reveal any evidence of interatrial shunting. Mild mitral regurgitation Trace aortic regurgitation Mild tricuspid regurgitation Mild pulmonic regurgitation No comparison studies are available Joel Pinto MD (Electronically Signed) Final Date: 04 July 2022 14:24 S
[2022-07-04] MEDS: aspirin 325 mg Tablet PO (08:50)
--- NOTE | 2022-07-04 09:00 | MR_ITS ---
WS: [id number] MRI BRAIN WITHOUT CONTRAST HISTORY: cva COMPARISON: 07/03/[address] TECHNIQUE: Diffusion imaging, multiplanar T1, T2 and FLAIR imaging obtained. Diffusion-weighted imaging is normal. No acute infarct. No hemorrhage. Mild symmetric atrophy. There is moderate small vessel ischemic type changes throughout the periventr icular, subcortical and supraventricular white matter. No sulcal effacement. Ventricles and extra-axial spaces are normal. No inferior displacement of cerebellar tonsils. The sella turcica and pituitary gland are unremarkabl e. Dural venous sinuses and [place] of [place] demonstrate no abnormality on this unenhanced studies. Paranasal sinuses: Clear. Mastoid air cells: Normal. Calvarium and scalp: Intact. MR/MR head wo con* [id number] IMPRESSION: 1. No acute infarct or diffusion abnormality. 2. Mild atrophy with moderate small vessel ischemic changes, symmetric small v essel disease.
--- NOTE | 2022-07-04 10:27 | PC.CHAP ---
Pastoral Care Encounter/Spiritual Assessment Type of Contact [] Declined records management associate visit [] Patient/Family/Request visit [] Outpatient visit [] Follow-up visit [] Physician referral [] Code/Alert [] Routine visit [] Staff referral [] Actively dying [] Patient sleeping [] Family support [] [] Out of room [] Palliative care [] [x] Receiving care in room [] Pre-surgical visit [] Trauma [] Long length of stay [] ICU visit [] Other: Relational/Emotional Strength [] Patient feels connected with others/family/visitors/staff [] Distress [] Loneliness/isolation [] Abandonment Spirituality of Patient [] Person of Radha [] Attends Jewish of their Radha [] Believes in Prayer [] Reads Bible or Nondenominational materials [] There are Spiritual issues to be addressed Medicare Sales Executive Interventions [] Prayer [] Active listening [] Non-anxious presence [] Spiritual/emotional support [] Crisis/trauma care [] Spiritual counseling [] Bereavement support [] Provided bereavement packet [] Provided Bible/devotional materials [] Provided toy/stuffed animal, coloring book to patient or family member [] Provided Communion [] Anointing/[place] [] Salvation [] Completed spiritual assessment [] Other: Impact on Illness or Injury [] Angry [] Fearful [] Anxious [] Often cries [] Exhaustion [] Unable to work [] Unable to attend advent [] Unable to walk/stand [] Unable to read [] Unable to drive [] Unable to eat/drink [] Unable to sleep [] Unable to be with family [] Patient intubated [] Other: Summary Time spent with patient
[2022-07-04] MEDS: lidocaine 5% Patch 1 PATCH TOPICAL (11:20)
--- NOTE | 2022-07-04 17:23 | P.PN_ITS ---
Subjective Subjective: MRI with no acute diffusion abnormalties. Echo without significant abnormalities. Shoulder CT with humerus fracture. therapy assessments completed. Medications: Reviewed: Yes Vitals/I&O/Wt Last Vital Signs Temp 97.3 F L 07/04/22 15:00 Pulse 80 07/04/22 15:00 Resp 17 07/04/22 15:00 BP 133/88 07/04/22 15:00 Pulse Ox 100 07/04/22 15:00 O2 Del Method 07/04/22 15:00 Weight last 48 hrs Weight 77.111 kg Physical Exam 2 Narrative: General: No acute distress, AO x3 HEENT: PERRLA, pupils bilaterally equal and reactive, pallors not present Chest: Normal vesicular breath sounds, no added sounds, equal good air entry bilaterally CVS: S1-S2 regular, no murmurs, no tachycardia, no gallops, no rubs Abdomen: Soft, nontender, no organomegaly, bowel sounds present Neuro: No focal deficits, no facial deformity, AO x3, power 5/5 in all limbs Extremities: unable to move LUE due to fracture Data 07/03/22 14:17 07/03/22 14:17 Other Labs: Radiology Impressions Head CT 07/03/22 14:11 IMPRESSION: No acute intracranial abnormality. ASSESSMENT: ASPECTS ([place] Stroke Program Early CT Score) is 10. Head/Neck CTA 07/03/22 15:06 IMPRESSION: No large vessel stenosis or occlusion. About 1 mm thick noncalcified focal filling defect in the left M1 possibly represents a noncalcified plaque though a tiny thrombus cannot be entirely excluded. IMPRESSION: No carotid stenosis. Dilatation of the ascending aorta up to 4.2 cm, aortic arch up to 3.3 cm. REFERENCES: NASCET CRITERIA. The degree of stenosis in the cervical segment of the internal carotid artery is based on NASCET criteria. Normal is no stenosis. Mild is less than 50% stenosis. Moderate is 50-69% stenosis. Severe is 70% to 99% stenosis. Total occlusion is no detectable patent lumen. Shoulder X-Ray 07/03/22 15:57 IMPRESSION: 1. 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 2. Increased radiolucency in the surgical neck and adjacent portions of the humeral head suggesting possible multiple myeloma versus metastatic disease versus other pathology. 3. CT left shoulder may be helpful rule out occult pathologic fracture. 4. Mild left acromioclavicular arthropathy. Shoulder CT 07/03/22 18:26 IMPRESSION: 1. Linear lucency and cortical disruption at the surgical neck of the humerus best seen on the coronal images. Findings are suspicious for a nondisplaced fracture. 2. No lytic or sclerotic bony lesions. 3. Marked degenerative change at the left glenohumeral joint and mild degenerative change at the left acromioclavicular joint. 4. Moderate left shoulder joint effusion. 5. Incidental/nonacute findings are listed in the report. Lumbar Spine CT 07/03/22 19:48 IMPRESSION: 1. No acute fracture of the lumbar spine. 2. Multilevel degenerative changes of varying severity in the visualized spine. Mild spinal canal stenosis at L1-L2, L2-L3, and L5-S1. Moderate spinal canal stenosis at L3-L4 and L4-L5. Multilevel foraminal stenosis of varying severity in the lumbar spine. 3. Incidental/nonacute findings are listed in the report. COMMENTS: Consistent with the [employer]'s Incidental Findings Committee white paper (J Am Esther Radiol 2018): Any incidental renal lesion less than 1 cm or classified as too small to characterize, or any incidental cystic renal lesion characterized as simple-appearing, is likely benign. No follow-up imaging is recommended for these lesions per consensus recommendations based on imaging criteria. Thoracic Spine CT 07/03/22 19:48 IMPRESSION: 1. No acute fracture of the thoracic spine. 2. Multilevel degenerative changes of varying severity in the visualized spine. [id number] multilevel foraminal stenosis in the thoracic spine. 3. Large nodule with foci of internal calcification in the isthmus and left thyroid lobe. Follow-up non-emergent thyroid ultrasound is recommended. 4. Incidental/nonacute findings are listed in the report. Head MRI 07/04/22 09:00 IMPRESSION: 1. No acute infarct or diffusion abnormality. 2. Mild atrophy with moderate small vessel ischemic changes, symmetric small vessel disease. Laboratory Results WBC 5.6 10^3/uL (4.0-10.0) 07/03/22 14:17 RBC 5.02 10^6/uL (4.1-5.3) 07/03/22 14:17 Hgb 13.7 g/dL (11.5-15.3) 07/03/22 14:17 Hct 43.7 % (37.0-47.0) 07/03/22 14:17 MCV 87.1 fl (81-99) 07/03/22 14:17 MCH 27.3 pg (28.0-34.0) L 07/03/22 14:17 MCHC 31.4 g/dL (30.0-36.0) 07/03/22 14:17 RDW 14.3 % (12.1-15.1) 07/03/22 14:17 Plt Count 186 10^3/cmm (130-400) 07/03/22 14:17 MPV 12.3 fL (7.4-10.4) H 07/03/22 14:17 Neut % (Auto) 54.8 % 07/03/22 14:17 Lymph % (Auto) 33.6 % 07/03/22 14:17 [place] % (Auto) 9.3 % 07/03/22 14:17 Eos % (Auto) 1.4 % 07/03/22 14:17 Baso % (Auto) 0.5 % 07/03/22 14:17 Neut # (Auto) 3.08 10^3/uL (1.8-7.7) 07/03/22 14:17 Lymph # (Auto) 1.9 10^3/uL (0.8-4.8) 07/03/22 14:17 [place] # (Auto) 0.5 10^3/uL (0.2-0.9) 07/03/22 14:17 Eos # (Auto) 0.1 10^3/uL (0.0-0.8) 07/03/22 14:17 Baso # (Auto) 0.0 10^3/uL (0.0-0.1) 07/03/22 14:17 Nucleated RBC % (auto) 0 % 07/03/22 14:17 Nucleated RBCs # 0.0 /100WBC 07/03/22 14:17 PT 13.40 SECONDS (12.1-14.9) 07/03/22 15:10 INR 0.99 (0.8-1.2) 07/03/22 15:10 APTT 31.0 SECONDS (23.9-36.7) 07/03/22 15:10 Sodium 137 mmol/L (136-145) 07/03/22 14:17 Potassium 4.4 mmol/L (3.5-5.1) 07/03/22 14:17 Chloride 102 mmol/L (98-107) 07/03/22 14:17 Carbon Dioxide 23 mmol/L (22-29) 07/03/22 14:17 Anion Gap 16.4 (5-19) 07/03/22 14:17 BUN 18 mg/dL (8-23) 07/03/22 14:17 Creatinine 0.7 mg/dL (0.5-0.9) 07/03/22 14:17 GFR Calculation Not Reportable 07/03/22 14:17 Glucose 90 mg/dL (65-115) 07/03/22 14:17 Estimat Average Glucose 108 07/04/22 01:59 Hemoglobin A1c 5.4 % (4.0-6.0) 07/04/22 01:59 Calculated Osmolality 285 mOsm/kg (285-295) 07/03/22 14:17 Calcium 9.2 mg/dL (8.5-10.5) 07/03/22 14:17 Total Bilirubin 0.2 mg/dL (0.15-1.2) 07/03/22 14:17 AST 17 U/L (0-32) 07/03/22 14:17 ALT 9 U/L (0-33) 07/03/22 14:17 Alkaline Phosphatase 66 U/L (35-105) 07/03/22 14:17 Troponin T Baseline 11 ng/L (0-10) H 07/03/22 15:10 Troponin T 120 Minute 11.69 ng/L (0-10) H 07/03/22 17:58 Delta Troponin T 0.69 ABS# (0-10) 07/03/22 17:58 Total Protein 7.7 g/dL (6.6-8.7) 07/03/22 14:17 Albumin 4.3 g/dL (3.5-5.2) 07/03/22 14:17 Globulin 3.4 g/dL (1.3-4.6) 07/03/22 14:17 Triglycerides 90 mg/dL (0-150) 07/04/22 01:59 Cholesterol 174 mg/dL (0-200) 07/04/22 01:59 LDL Cholesterol, Calc 108 mg/dL (50-129) 07/04/22 01:59 HDL Cholesterol 48 mg/dL (60-100) L 07/04/22 01:59 LDL/HDL Ratio 2.25 RATIO (0.00-3.22) 07/04/22 01:59 Cholesterol/HDL Ratio 3.63 mg/dL (0.0-4.40) 07/04/22 01:59 Urine Color Straw (Yellow) 07/03/22 15:55 Urine Appearance Clear (CLEAR) 07/03/22 15:55 Urine pH 7 (5-7) 07/03/22 15:55 Ur Specific [place] 1.005 (1.005-1.030) 07/03/22 15:55 Urine Protein Neg (Negative) 07/03/22 15:55 Urine Glucose (UA) Norm (Normal) 07/03/22 15:55 Urine Ketones Negative (Negative) 07/03/22 15:55 Urine Blood Neg (Negative) 07/03/22 15:55 Urine Nitrate Negative (Negative) 07/03/22 15:55 Urine Bilirubin Neg (Negative) 07/03/22 15:55 Urine Urobilinogen Norm mg/dL (Negative) 07/03/22 15:55 Ur Leukocyte Esterase Negative (Negative) 07/03/22 15:55 Urine Opiates Screen Negative ng/mL (Negative) 07/03/22 15:55 Acetaminophen < 5.0 ug/mL (10-30) L 07/03/22 15:10 Ur Barbiturates Screen Negative ng/mL (Negative) 07/03/22 15:55 Ur Phencyclidine Scrn Negative ng/mL (Negative) 07/03/22 15:55 Ur Amphetamines Screen Negative ng/mL (Negative) 07/03/22 15:55 U Benzodiazepines Scrn Negative ng/mL (Negative) 07/03/22 15:55 Urine Cocaine Screen Negative ng/mL (Negative) 07/03/22 15:55 U Marijuana (THC) Screen Negative ng/mL (Negative) 07/03/22 15:55 Ethyl Alcohol < 10 mg/dL (0-10) 07/03/22 14:17 A&P Assessment and plan (1) CVA (cerebral vascular accident): 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 Currently repo rting her symptoms are aphasia, dysarthria. Head CT, head and neck CTA results appreciated. MRI withotu acute diffusion abnormality Echo without signifcinat abnormalities CTA head/neck No large vessel stenosis or occlusion. About 1 mm thick noncalcified focal filling defect in the left M1 possibly represents a noncalcified plaque though a tiny thrombus cannot be entirely excluded.No carotid stenosis. Continue aspirin, start statin. Left shoulder pain appears to be musculoskeletal in nature, CT shoulder without any lytic lesions. Shows Linear lucency and cortical disruption at the surgical neck of the humerus best seen on the coronal images.? Findings are suspicious for a nondisplaced fracture.No lytic or sclerotic bony lesions.Marked degenerative change at the left glenohumeral joint and mild degenerative change at the left acromioclavicular joint.Moderate left shoulder joint effusion. (2) Lytic lesion of bone on x-ray: CT of the shoulder with fracture. Will order arm sling. Follow up as outpatient with ortho (3) Left shoulder pain: As above (4) Aortic ectasia, thoracic: Dilatation of the ascending aorta up to 4.2 cm, aortic arch up to 3.3 cm. Monitor blood pressures. Unclear if has history of hypertension. May benefit from long-term blood pressure optimization. Will need outpatient follow-up for aortic ectasia and blood pressures. (5) Lower back pain: Leg weakness, worse on the right after past CVA, but with back pain and weakness in the left side as well, lytic lesion in the shoulder, will additionally assess with CT thoracic and lumbar spine with consideration of possible myeloma or metastatic malignancy. PT and OT assessment requested Symptomatic management with capsaicin, acetaminophen. (6) Leg weakness: Additional assessment of lower back pain as above. Right-sided weakness after prior CVA, but does appear to have some weakness on the left side as well. Able to bend her leg at the knee but not to lift the leg off the bed. Additional imaging assessment as above. PT, OT assessment. (7) Difficulty in walking: As above Plan Appreciate PT/OT assessment . speech therapy. Start regular diet Dispo: planning ongoing- will discuss with son regrading SNF vs Attestations Medical Necessity Statement*: Disposition planning, awaiting to talk to son Coding Level of Care Code Acute Code for Chg Fwd Diagnoses CVA (cerebral vascular accident) I63.9 Lytic lesion of bone on x-ray M89.9 Left shoulder pain M25.512 Aortic ectasia, thoracic I77.810 Lower back pain M54.50 Leg weakness R29.898 Difficulty in walking R26.2
--- NOTE | 2022-07-04 19:24 | PC.NURSE ---
Notified PT of Dr. Babb ordering a sling for patient
[2022-07-04] MEDS: atorvastatin 40 mg Tablet PO (20:22)
[2022-07-05] VITALS (7 sets, daily range): BP systolic 110–126; BP diastolic 74–80; PULSE 53–103; RESP 16–18; TEMP 36.3–36.7; O2SAT 91–98
[2022-07-05 08:49] LABS: PROTEIN, TOTAL 6.7 g/dL (6.1-8.1)
[2022-07-05] MEDS: aspirin 325 mg Tablet PO (10:07)
[2022-07-05] MEDS: lidocaine 5% Patch 1 PATCH TOPICAL (10:08)
[2022-07-05 11:35] LABS: KAPPA LIGHT CHAIN, FREE, SERUM 27.4 mg/L (3.3-19.4); KAPPA/LAMBDA LIGHT CHAINS FREE 1.48 (0.26-1.65); LAMBDA LIGHT CHAIN, FREE, SERU 18.5 mg/L (5.7-26.3)
[2022-07-05 15:10] LABS: ALBUMIN 3.6 g/dL (3.8-4.8); ALPHA 1 GLOBULIN 0.3 g/dL (0.2-0.3); ALPHA 2 GLOBULIN 0.7 g/dL (0.5-0.9); BETA 1 GLOBULIN 0.4 g/dL (0.4-0.6); BETA 2 GLOBULIN 0.4 g/dL (0.2-0.5); GAMMA GLOBULIN 1.4 g/dL (0.8-1.7)
--- NOTE | 2022-07-05 15:22 | P.PN_ITS ---
Subjective Subjective: Therapy assessments were completed. No acute interim events compared to yesterday. Hemodynamically stable. Tolerating her diet. Ambulating in the room with the assistance of a walker. Medications: Reviewed: Yes Vitals/I&O/Wt Last Vital Signs Temp 98.0 F 07/05/22 11:00 Pulse 80 07/05/22 11:00 Resp 18 07/05/22 11:00 BP 110/74 07/05/22 11:00 Pulse Ox 97 07/05/22 11:00 O2 Del Method 07/05/22 03:00 O2 Flow Rate 4.5 07/05/22 08:00 Physical Exam Narrative: General: No acute distress, AO x3 HEENT: PERRLA, pupils bilaterally equal and reactive, pallors not present Chest: Normal vesicular breath sounds, no added sounds, equal good air entry estephanie aterally CVS: S1-S2 regular, no murmurs, no tachycardia, no gallops, no rubs Abdomen: Soft, nontender, no organomegaly, bowel sounds present Neuro: No focal deficits, no facial deformity, AO x3, power 5/5 in all limbs Extremities: unable to move LUE due to fracture Data 07/03/22 14:17 07/03/22 14:17 A&P Assessment and plan (1) CVA (cerebral vascular accident): 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 Currently reporting her symptoms are aphasia, dysarthria. Head CT, head and neck CTA results appreciated. MRI withotu acute diffusion abnormality Echo without signifcinat abnormalities CTA head/neck No large vessel stenosis or occlusion. About 1 mm thick noncalcified focal filling defect in the left M1 possibly represents a noncalcified plaque though a tiny thrombus cannot be entirely excluded.No carotid stenosis. Continue aspirin, start statin. Left shoulder pain appears to be musculoskeletal in nature, CT shoulder without any lytic lesions. Shows Linear lucency and cortical disruption at the surgical neck of the humerus best seen on the coronal images.? Findings are suspicious for a nondisplaced fracture.No lytic or sclerotic bony lesions.Marked degenerative change at the left glenohumeral joint and mild degenerative change at the left acromioclavicular joint.Moderate left shoulder joint effusion. We will arrange follow-up with orthopedics as outpatient. Arm sling has been ordered PT OT assessment appreciated. Patient will likely benefit from continued physical therapy. Appropriate disposition planning ongoing, home health versus SNF for rehab (2) Lytic lesion of bone on x-ray: CT of the shoulder with fracture. Will order arm sling. Follow up as outpatient with ortho. No lytic lesions on CT. Will need outpatient follow-up for possible osteoporosis. Patient does not recall any obvious trauma to the site. (3) Left shoulder pain: As above (4) Aortic ectasia, thoracic: Dilatation of the ascending aorta up to 4.2 cm, aortic arch up to 3.3 cm. Monitor blood pressures. Unclear if has history of hypertension. May benefit from long-term blood pressure optimization. Will need outpatient follow-up for aortic ectasia and blood pressures. (5) Lower back pain: Now resolved (6) Leg weakness: Additional assessment of lower back pain as above. Right-sided weakness after prior CVA, but does appear to have some weakness on the left side as well. Able to bend her leg at the knee but not to lift the leg off the bed. Additional imaging assessment as above. PT, OT assessment appreciated. (7) Difficulty in walking: As above Plan Appreciate PT/OT assessment . speech therapy. Start regular diet Dispo: planning ongoing- will discuss with son regrading SNF vs HH All updates discussed with son at bedside Attestations Medical Necessity Statement*: Patient needs continued admission while disposition planning is ongoing. Likely to transition to home health versus SNF for rehab Coding Level of Care Code Acute Code for Chg Fwd Straight Forward/Low MDM includes number and complexity of problems actively addressed during encounter, amount and/or complexity of data reviewed/ordered and described risk of complication, morbidity or mortality of management as documented Diagnoses CVA (cerebral vascular accident) I63.9 Lytic lesion of bone on x-ray M89.9 Left shoulder pain M25.512 Aortic ectasia, thoracic I77.810 Lower back pain M54.50 Leg weakness R29.898 Difficulty in walking R26.2
[2022-07-05] MEDS: acetaminophen 325 mg Tablet 650 MG PO (16:58)
[2022-07-05] MEDS: capsaicin 0.025% cream 60 gm 1 APPLIC TOPICAL (17:00)
[2022-07-05] MEDS: atorvastatin 40 mg Tablet PO (21:42)
[2022-07-06] VITALS: BP 125/80; PULSE 58; RESP 15; TEMP 36.4; O2SAT 98
[2022-07-06 04:00] VITALS: BP 116/73; PULSE 62; RESP 16; TEMP 36.6; O2SAT 94
[2022-07-06 06:00] VITALS: PULSE 52
[2022-07-06 08:00] VITALS: BP 127/74; PULSE 53; RESP 16; TEMP 36.6; O2SAT 94
[2022-07-06] MEDS: aspirin 325 mg Tablet PO (09:01)
[2022-07-06] MEDS: lidocaine 5% Patch 1 PATCH TOPICAL (09:01)
[2022-07-06] MEDS: capsaicin 0.025% cream 60 gm 1 APPLIC TOPICAL (09:05)
--- NOTE | 2022-07-06 10:09 | PC.SOCIAL ---
IMM update IMM updated with patient. Copy page 2 provided. Verbalized understanding. Initial,dated,timed and placed in chart.
[2022-07-06 12:22] LABS: SARS Covid-2 Antigen Negative (Negative)
[2022-07-06 12:25] VITALS: BP 131/79; PULSE 60; RESP 18; TEMP 36.6; O2SAT 96
[2022-07-06 15:01] VITALS: BP 131/79; PULSE 60; RESP 18; TEMP 36.6; O2SAT 96
--- NOTE | 2022-07-06 15:18 | PM.DCS ---
Discharge Providers Date of Admission: 07/03/22 17:06 Date of Discharge: July 06, 2022 Attending Provider at Admission: Pascual Fong Attending Provider at Discharge: Codi Babb MD Diagnoses at Discharge Discharge Diagnosis (1) CVA (cerebral vascular accident): Status: Acute (2) Lytic lesion of bone on x-ray: Status: Acute (3) Left shoulder pain: Status: Acute (4) Aortic ectasia, thoracic: Status: Acute (5) Lower back pain: Status: Acute (6) Leg weakness: Status: Acute (7) Difficulty in walking: Status: Acute Reason for Visit Reason for Visit: weakness Hospital Course Hospital Course 77-year-old lady whose first language is Creole, was brought into ER due to speech difficulties including dysarthria. 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 She also had severe pain in the left shoulder which has been ongoing. She was assessed by teleneurology and with finding of M1 possible plaque or thrombus on CTA there was concern for possible subacute CVA. Hospital course: (1) CVA (cerebral vascular accident): 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? Currently reporting her symptoms are aphasia, dysarthria.? CTA head/neck?No large vessel stenosis or occlusion. About 1 mm thick noncalcified focal filling defect in the left M1 possibly represents a noncalcified plaque though a tiny thrombus cannot be entirely excluded.No carotid stenosis. Follow up MRI without acute diffusion abnormality. Mild atrophy with moderate small vessel ischemic changes, symmetric small vessel disease. Echo without significant abnormalities She was started on aspirin 81mg daily and atorvastatin 40 mg daily. no arrhythmias were noted on telemetry. PT OT assessment appreciated.? Patient will likely benefit from continued physical therapy.? Transition to SNF for continued skilled therapy. No concerns noted on swallow evaluation. (2) Left shoulder pain CT shoulder without any lytic lesions. Shows?Linear lucency and cortical disruption at the surgical neck of the humerus best seen on the coronal images.? Findings are suspicious for a nondisplaced fracture.No lytic or sclerotic bony lesions.Marked degenerative change at the left glenohumeral joint and mild degenerative change at the left acromioclavicular joint.Moderate left shoulder joint effusion.? We will arrange follow-up with orthopedics as outpatient.? Arm sling has been ordered and patient is wearing this at the time of discharge. Outpatient referral provided to orthopedics. (3) Incidental left thryroid nodule: referral provided for endocrinology as outpatient (4) Aortic ectasia, thoracic incidental discovery: Dilatation of the ascending aorta up to 4.2 cm, aortic arch up to 3.3 cm. BP currently well controlled, follow-up as outpatient with primary care provider. Physical Exam Narrative: General: No acute distress, AO x3 HEENT: PERRLA, pupils bilaterally equal and reactive, pallors not present Chest: Normal vesicular breath sounds, no added sounds, equal good air entry bilaterally CVS: S1-S2 regular, no murmurs, no tachycardia, no gallops, no rubs Abdomen: Soft, nontender, no organomegaly, bowel sounds present Neuro: No focal deficits, no facial deformity, AO x3, right lower extremity appears to be slightly weaker than the left. Unable to appreciate a difference in upper limbs, patient unable to extend her left upper extremity at the shoulder due to the fracture. Discharge Data Studies Completed and Pending Completed Studies During Hospitalization Category Date Time Status CT head thrombolytic [id number] Stat Cat Scan 07/03/22 14:[address] lumbar spine wo con* [id number] Routine Cat Scan 07/03/22 19:[address] shoulder LT wo con* [id number] Routine Cat Scan 07/03/22 18:[address] thoracic spin wo con* [id number] Routine Cat Scan 07/03/22 19:48 Completed CTA head neck [CT angio headneck* [id number]] Stat Cat Scan 07/03/22 15:06 Completed XR shoulder LT min 2V* [id number] Stat Exams 07/03/22 15:57 Completed MR head wo con* [id number] Routine MRI 07/04/22 09:00 Completed CV. echo w/w bubble cont [id number] Routine Ultrasound 07/04/22 06:00 Completed Radiology Impressions Head CT 07/03/22 14:11 IMPRESSION: No acute intracranial abnormality. ASSESSMENT: ASPECTS ([place] Stroke Program Early CT Score) is 10. Head/Neck CTA 07/03/22 15:06 IMPRESSION: No large vessel stenosis or occlusion. About 1 mm thick noncalcified focal filling defect in the left M1 possibly represents a noncalcified plaque though a tiny thrombus cannot be entirely excluded. IMPRESSION: No carotid stenosis. Dilatation of the ascending aorta up to 4.2 cm, aortic arch up to 3.3 cm. REFERENCES: NASCET CRITERIA. The degree of stenosis in the cervical segment of the internal carotid artery is based on NASCET criteria. Normal is no stenosis. Mild is less than 50% stenosis. Moderate is 50-69% stenosis. Severe is 70% to 99% stenosis. Total occlusion is no detectable patent lumen. Shoulder X-Ray 07/03/22 15:57 IMPRESSION: 1. 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 2. Increased radiolucency in the surgical neck and adjacent portions of the humeral head suggesting possible multiple myeloma versus metastatic disease versus other pathology. 3. CT left shoulder may be helpful rule out occult pathologic fracture. 4. Mild left acromioclavicular arthropathy. Shoulder CT 07/03/22 18:26 IMPRESSION: 1. Linear lucency and cortical disruption at the surgical neck of the humerus best seen on the coronal images. Findings are suspicious for a nondisplaced fracture. 2. No lytic or sclerotic bony lesions. 3. Marked degenerative change at the left glenohumeral joint and mild degenerative change at the left acromioclavicular joint. 4. Moderate left shoulder joint effusion. 5. Incidental/nonacute findings are listed in the report. Lumbar Spine CT 07/03/22 19:48 IMPRESSION: 1. No acute fracture of the lumbar spine. 2. Multilevel degenerative changes of varying severity in the visualized spine. Mild spinal canal stenosis at L1-L2, L2-L3, and L5-S1. Moderate spinal canal stenosis at L3-L4 and L4-L5. Multilevel foraminal stenosis of varying severity in the lumbar spine. 3. Incidental/nonacute findings are listed in the report. COMMENTS: Consistent with the [employer]'s Incidental Findings Committee white paper (J Am Esther Radiol 2018): Any incidental renal lesion less than 1 cm or classified as too small to characterize, or any incidental cystic renal lesion characterized as simple-appearing, is likely benign. No follow-up imaging is recommended for these lesions per consensus recommendations based on imaging criteria. Thoracic Spine CT 07/03/22 19:48 IMPRESSION: 1. No acute fracture of the thoracic spine. 2. Multilevel degenerative changes of varying severity in the visualized spine. Xbcm-gz-glhwcrks multilevel foraminal stenosis in the thoracic spine. 3. Large nodule with foci of internal calcification in the isthmus and left thyroid lobe. Follow-up non-emergent thyroid ultrasound is recommended. 4. Incidental/nonacute findings are listed in the report. Head MRI 07/04/22 09:00 IMPRESSION: 1. No acute infarct or diffusion abnormality. 2. Mild atrophy with moderate small vessel ischemic changes, symmetric small vessel disease. Laboratory Results WBC 5.6 10^3/uL (4.0-10.0) 07/03/22 14:17 RBC 5.02 10^6/uL (4.1-5.3) 07/03/22 14:17 Hgb 13.7 g/dL (11.5-15.3) 07/03/22 14:17 Hct 43.7 % (37.0-47.0) 07/03/22 14:17 MCV 87.1 fl (81-99) 07/03/22 14:17 MCH 27.3 pg (28.0-34.0) L 07/03/22 14:17 MCHC 31.4 g/dL (30.0-36.0) 07/03/22 14:17 RDW 14.3 % (12.1-15.1) 07/03/22 14:17 Plt Count 186 10^3/cmm (130-400) 07/03/22 14:17 MPV 12.3 fL (7.4-10.4) H 07/03/22 14:17 Neut % (Auto) 54.8 % 07/03/22 14:17 Lymph % (Auto) 33.6 % 07/03/22 14:17 [place]corn % (Auto) 9.3 % 07/03/22 14:17 Eos % (Auto) 1.4 % 07/03/22 14:17 Baso % (Auto) 0.5 % 07/03/22 14:17 Neut # (Auto) 3.08 10^3/uL (1.8-7.7) 07/03/22 14:17 Lymph # (Auto) 1.9 10^3/uL (0.8-4.8) 07/03/22 14:17 [place] # (Auto) 0.5 10^3/uL (0.2-0.9) 07/03/22 14:17 Eos # (Auto) 0.1 10^3/uL (0.0-0.8) 07/03/22 14:17 Baso # (Auto) 0.0 10^3/uL (0.0-0.1) 07/03/22 14:17 Nucleated RBC % (auto) 0 % 07/03/22 14:17 Nucleated RBCs # 0.0 /100WBC 07/03/22 14:17 PT 13.40 SECONDS (12.1-14.9) 07/03/22 15:10 INR 0.99 (0.8-1.2) 07/03/22 15:10 APTT 31.0 SECONDS (23.9-36.7) 07/03/22 15:10 Sodium 137 mmol/L (136-145) 07/03/22 14:17 Potassium 4.4 mmol/L (3.5-5.1) 07/03/22 14:17 Chloride 102 mmol/L (98-107) 07/03/22 14:17 Carbon Dioxide 23 mmol/L (22-29) 07/03/22 14:17 Anion Gap 16.4 (5-19) 07/03/22 14:17 BUN 18 mg/dL (8-23) 07/03/22 14:17 Creatinine 0.7 mg/dL (0.5-0.9) 07/03/22 14:17 GFR Calculation Not Reportable 07/03/22 14:17 Glucose 90 mg/dL (65-115) 07/03/22 14:17 Estimat Average Glucose 108 07/04/22 01:59 Hemoglobin A1c 5.4 % (4.0-6.0) 07/04/22 01:59 Calculated Osmolality 285 mOsm/kg (285-295) 07/03/22 14:17 Calcium 9.2 mg/dL (8.5-10.5) 07/03/22 14:17 Total Bilirubin 0.2 mg/dL (0.15-1.2) 07/03/22 14:17 AST 17 U/L (0-32) 07/03/22 14:17 ALT 9 U/L (0-33) 07/03/22 14:17 Alkaline Phosphatase 66 U/L (35-105) 07/03/22 14:17 Troponin T Baseline 11 ng/L (0-10) H 07/03/22 15:10 Troponin T 120 Minute 11.69 ng/L (0-10) H 07/03/22 17:58 Delta Troponin T 0.69 ABS# (0-10) 07/03/22 17:58 Total Protein 6.7 g/dL (6.1-8.1) 07/04/22 01:59 Albumin 3.6 g/dL (3.8-4.8) L 07/04/22 01:59 Globulin 3.4 g/dL (1.3-4.6) 07/03/22 14:17 Ynmtn-8-Rbbkftwzs 0.3 g/dL (0.2-0.3) 07/04/22 01:59 Hmfln-2-Lgkvjulfx 0.7 g/dL (0.5-0.9) 07/04/22 01:59 Pydy-8-Cuxznerf 0.4 g/dL (0.4-0.6) 07/04/22 01:59 Pfjv-9-Djjjwpnp 0.4 g/dL (0.2-0.5) 07/04/22 01:59 Gamma Globulins 1.4 g/dL (0.8-1.7) 07/04/22 01:59 Abnorm Protein Band 1 Not Reportable 07/04/22 01:59 Triglycerides 90 mg/dL (0-150) 07/04/22 01:59 Cholesterol 174 mg/dL (0-200) 07/04/22 01:59 LDL Cholesterol, Calc 108 mg/dL (50-129) 07/04/22 01:59 HDL Cholesterol 48 mg/dL (60-100) L 07/04/22 01:59 LDL/HDL Ratio 2.25 RATIO (0.00-3.22) 07/04/22 01:59 Cholesterol/HDL Ratio 3.63 mg/dL (0.0-4.40) 07/04/22 01:59 Urine Color Straw (Yellow) 07/03/22 15:55 Urine Appearance Clear (CLEAR) 07/03/22 15:55 Urine pH 7 (5-7) 07/03/22 15:55 Ur Specific [place] 1.005 (1.005-1.030) 07/03/22 15:55 Urine Protein Neg (Negative) 07/03/22 15:55 Urine Glucose (UA) Norm (Normal) 07/03/22 15:55 Urine Ketones Negative (Negative) 07/03/22 15:55 Urine Blood Neg (Negative) 07/03/22 15:55 Urine Nitrate Negative (Negative) 07/03/22 15:55 Urine Bilirubin Neg (Negative) 07/03/22 15:55 Urine Urobilinogen Norm mg/dL (Negative) 07/03/22 15:55 Ur Leukocyte Esterase Negative (Negative) 07/03/22 15:55 U Abnormal Prot Band 2 Not Reportable 07/04/22 01:59 U Abnormal Prot Band 3 Not Reportable 07/04/22 01:59 Urine Opiates Screen Negative ng/mL (Negative) 07/03/22 15:55 Acetaminophen < 5.0 ug/mL (10-30) L 07/03/22 15:10 Ur Barbiturates Screen Negative ng/mL (Negative) 07/03/22 15:55 Ur Phencyclidine Scrn Negative ng/mL (Negative) 07/03/22 15:55 Ur Amphetamines Screen Negative ng/mL (Negative) 07/03/22 15:55 U Benzodiazepines Scrn Negative ng/mL (Negative) 07/03/22 15:55 Urine Cocaine Screen Negative ng/mL (Negative) 07/03/22 15:55 U Marijuana (THC) Screen Negative ng/mL (Negative) 07/03/22 15:55 Ethyl Alcohol < 10 mg/dL (0-10) 07/03/22 14:17 Pro Electrophoresis Int See note 07/04/22 01:59 Serum Immunofixation See note 07/04/22 01:59 Free [place] Light Chains 27.4 mg/L (3.3-19.4) H 07/04/22 01:59 Free Lambda Light Chain 18.5 mg/L (5.7-26.3) 07/04/22 01:59 Free [place]/Lambda Ratio 1.48 (0.26-1.65) 07/04/22 01:59 SARS-CoV-2 Ag (Rapid) Negative (Negative) 07/06/22 11:28 Vitals Last Vital Signs Temp 97.9 F 02/22/23 15:01 Pulse 60 07/06/22 15:01 Resp 18 07/06/22 15:01 BP 131/79 07/06/22 15:01 Pulse Ox 96 07/06/22 15:01 O2 Del Method 07/06/22 12:25 O2 Flow Rate 4.5 07/05/22 08:00 Discharge Plan Discharge Patient Disposition: Xfer SNF Condition: Stable Prescriptions: New atorvastatin 40 mg Tablet 40 mg PO BEDTIME 30 Days Qty: 30 0RF lidocaine 5 % Adhesive Patch,Medicated 1 patch topical [id number] Qty: 30 0RF aspirin 81 mg capsule 81 mg PO DAILY 30 Days Qty: 30 0RF Discharge Orders: Discharge Order (Routine); Ordered 07/06/22 Ordered By: Codi Babb Referrals: Fabiola Whitehead [Other] - 2 weeks [facility] [Outside] Elenita Leonard MD [Physician] - (fracture left shoulder, non union ) Alexandre May MD [Physician] - 2 weeks (Large nodule with foci of internal calcification in the isthmus and left thyroid lobe. ) Discharge Diet: Usual diet Discharge Activity: Resume usual activity Patient Instructions: Aspirin (By mouth), Lidocaine (On the skin), Atorvastatin (By mouth), Weakness (GEN), Opioid Safety Discharge Attestations Time Spent in Discharge Care*: greater than 30 min Quality Metrics Clinical Quality Measures [ Cerebrovascular Accident { Contraindication to Antithrombotic: None; antithrombotic prescribed; Contraindication to Anticoagulation: Overlap treatment not indicated; Contraindication to Statin: None; Statin prescribed;}] Coding Level of Care Code Acute Code for g Fwd Diagnoses CVA (cerebral vascular accident) I63.9 Lytic lesion of bone on x-ray M89.9 Left shoulder pain M25.512 Aortic ectasia, thoracic I77.810 Lower back pain M54.50 Leg weakness R29.898 Difficulty in walking R26.2
== END 2022-07-06 15:03 | disposition skilled nursing facility (03) | DRG 65 ==
LOC: ER 17:05 → MEDSURG 17:55
PROVIDERS: Admitting Provider Internal Medicine; Emergency Provider General Practice; Visit Provider Student in an Organized Health Care Education/Training Program
DX: I63.412 Cerebral infarction due to embolism of left middle cerebral artery (principal); S42.215A Unspecified nondisplaced fracture of surgical neck of left humerus, initial encounter for closed fracture; R47.01 Aphasia; R29.712 NIHSS score 12; I69.941 Monoplegia of lower limb following unspecified cerebrovascular disease affecting right dominant side; X58.XXXA Exposure to other specified factors, initial encounter; M54.50 Low back pain, unspecified; I71.40 Abdominal aortic aneurysm, without rupture, unspecified; M89.9 Disorder of bone, unspecified
CPT/HCPCS: 36415; 70450; 70496; 70498; 70551; 72128; 72131; 73030; 73200; 80053; 80061; 80306; 80307; 81003; 83036; 83883; 84155; 84165; 84484; 85025; 85610; 85730; 86334; 87426; 92507; 92523; 92526; 92610; 93005; 96374; 97110; 97116; 97161; 97167; 97530; 97535; 99291; C8929; L3670; Q9967

== ENCOUNTER → 2022-07-14 13:39 | Outpatient (BNVA) | payer OTHER, MEDICARE, SELFPAY | PROVIDERS: Referring Provider Student in an Organized Health Care Education/Training Program; Visit Provider Nurse Practitioner Family | DX: M19.012 Primary osteoarthritis, left shoulder (principal); M25.712 Osteophyte, left shoulder | CPT/HCPCS: 73030; 99214 ==

== ENCOUNTER → 2022-08-05 08:58 | Outpatient (BNVA) | payer MEDICARE, SELFPAY | PROVIDERS: Visit Provider Internal Medicine | DX: Z09 Encounter for follow-up examination after completed treatment for conditions other than malignant neoplasm (principal); E04.1 Nontoxic single thyroid nodule; R13.10 Dysphagia, unspecified | CPT/HCPCS: 99204 ==

== ENCOUNTER 2022-12-22 16:58 | Emergency (ER) | payer MEDICARE, SELFPAY ==
[2022-12-22 18:05] VITALS: BP 123/90; PULSE 66; O2SAT 95
[2022-12-22 19:00] VITALS: BP 134/89; PULSE 56; RESP 18; TEMP 36.6; O2SAT 97; BMI 25.0
--- NOTE | 2022-12-22 20:18 | CTR_ITS ---
PROCEDURE INFORMATION: Exam: CT Cervical Spine Without Contrast Exam date and time: 12/22/2022 8:42 PM Age: 77 years old Clinical indication: Injury or trauma; Fall; Blunt trauma TECHNIQUE: Imaging protocol: Computed tomography of the cervical spine without contrast. Radiation optimization: All CT scans at this facility use at least one of these dose optimization techniques: automated exposure control; mA and/or kV adjustment per patient size (includes targeted exams where dose is matched to clinical indication); or iterative reconstruction. REPORTING DATA: Count of CT and Cardiac NM exams in prior 12 months: This patient has received 5 known CTs and 0 known cardiac nuclear medicine studies in the 12 months prior to the current study. COMPARISON: CT angio headneck* [id number] 07/03/2022 3:16 PM RADIATION DOSE METRICS: Total DLP (mGy-cm): 136.57 FINDINGS: Bones/joints: Cervical vertebral body heights appear maintained. Very minimal scoliosis on the coronal images. Straightening of the cervical curvature on the sagittal images. No fracture or acute osseous abnormality. Spondylotic change noted. Disc spaces appear fairly without disc space narrowing. No significant or severe spinal stenosis. Mild neural foraminal narrowing C4-5 on the right and C6-7 on the left. Lungs: Mild apical scarring. Soft tissues: Soft tissues show no significant abnormality. CT/CT cervical spin wo con* [id number] IMPRESSION: 1. Mild straightening of the cervical curvature. This can be associated with muscle spasm or tension. 2. Spondylotic change. 3. No fracture or acute osseous abnormality.
--- NOTE | 2022-12-22 20:18 | CTR_ITS ---
PROCEDURE INFORMATION: Exam: CT Head Without Contrast Exam date and time: 12/22/2022 8:38 PM Age: 77 years old Clinical indication: Injury or trauma; Fall; Blunt trauma (contusions or hematomas); Additional info: Head injury TECHNIQUE: Imaging protocol: Computed tomography of the head without contrast. Radiation optimization: All CT scans at this facility use at least one of these dose optimization techniques: automated exposure control; mA and/or kV adjustment per patient size (includes targeted exams where dose is matched to clinical indication); or iterative reconstruction. REPORTING DATA: Count of CT and Cardiac NM exams in prior 12 months: This patient has received 5 known CTs and 0 known cardiac nuclear medicine studies in the 12 months prior to the current study. COMPARISON: MR head wo con* [id number] 07/04/2022 1:49 PM RADIATION DOSE METRICS: Total DLP (mGy-cm): 2058.78 FINDINGS: Brain: Atrophic or involutional change for age, along with chronic small-vessel disease change bilaterally. No intracranial hemorrhage or hematoma. No mass effect or shift of midline structures. No findings to indicate territorial or large vessel ischemic infarct. Cerebral ventricles: No significant ventriculomegaly. Paranasal sinuses: Visualized sinuses are unremarkable. No fluid levels. Mastoid air cells: Visualized mastoid air cells are well aerated. Bones/joints: Unremarkable. No acute fracture. Soft tissues: Unremarkable. Other findings: No significant change with prior exam July 03, 2022. CT/CT head wo con* [id number] IMPRESSION: 1. Atrophic or involutional change for age, along with chronic small-vessel disease change. 2. No acute intracranial abnormality or significant change with prior exam.
--- NOTE | 2022-12-22 20:18 | XRR_ITS ---
PROCEDURE INFORMATION: Exam: XR Chest Exam date and time: 12/22/2022 8:30 PM Age: 77 years old Clinical indication: Other: Syncope TECHNIQUE: Imaging protocol: Radiologic exam of the chest. Views: 1 view. COMPARISON: CR XR shoulder LT min 2V* [id number] 07/14/2022 1:39 PM FINDINGS: Lungs: Mildly increased lung markings, likely secondary to low lung volumes. Minimal bibasilar atelectasis noted. No consolidation. Pleural spaces: Unremarkable. No pleural effusion. No pneumothorax. Heart/Mediastinum: Mildly enlarged heart. Bones/joints: Degenerative changes of the shoulder joints noted. XR/XR chest 1V portable [id number] IMPRESSION: No evidence of active cardiopulmonary disease.
--- NOTE | 2022-12-22 20:30 | ECG_ITS ---
[facility] Test Date: 2022-12-22 Pat Name: Latonia Major Department: Room: Gender: Female Fleece Tier: : 1945 Requested By: Man Mccloud Order Number: [id number] Yoel MD: Joel Pinto M.D. Measurements Intervals [place] Rate: 64 P: 67 ME: 194 QRS: 11 QRSD: 99 T: 15 QT: 402 QTc: 417 Interpretive Statements SINUS RHYTHM NONSPECIFIC T-WAVE ABNORMALITY Compared to ECG 07/03/2022 14:31:07 T-wave abnormality now present Left ventricular hypertrophy no longer present Myocardial infarct finding no longer present Electronically Signed On 12-23-2022 9:25:40 CDT by Joel Pinto M.D. [email or web address]
[2022-12-22 21:05] VITALS: BP 135/87; PULSE 56; RESP 14; O2SAT 95
--- NOTE | 2022-12-22 21:06 | ED_ITS ---
HPI - Fall General: Chief Complaint: Fall Stated Complaint: fall, hit head Time Seen by Provider: 12/22/22 20:19 Source: patient Mode of arrival: ambulatory Limitations: no limitations History of Present Illness: 77-year-old female has a history of a stroke she states that she had nailed to pray and fell forward and hit her head on the ground per family she stood up and then passed out after this was out for roughly 3 to 4 minutes. She is complaining of a headache since then along with some neck pain she does have a hematoma to the right forehead. Denies any chest pain denies any shortness of b reath she denies any vomiting. Associated symptoms-after fall: Reports headache(s) and neck pain; Denies abdominal pain or chest pain Review of Systems Const: Denies: fever(s) or chills Eyes: Denies: blurry vision or eye discomfort ENMT: Denies: throat pain or dental pain Card: Denies: chest pain Resp: Denies: dyspnea GI: Denies: abdominal pain, nausea, vomiting or diarrhea Musc: Reports: neck pain; Denies: back pain Skin/Breast: Denies: rash Neuro: Reports: headache(s) Psych: Denies: depression PFSH ED PFSH: Medical History CVA (cerebral vascular accident) Left shoulder pain Surgical History No pertinent past surgical history Family History Other No significant family history Social History Smoking and tobacco status: never smoked Alcohol intake: never Household members: other Details: Traveling here from [place] with her son Physical Exam Const: COMMON NORMALS: no acute distress, patient oriented x3 and healthy appearing HENMT: OTHER: hematoma to right forehead Eye: COMMON NORMALS: Equal, round and reactive pupils present and EOMs intact bilaterally PUPIL: Yes Equal, round and reactive pupils present Neck/C-Spine: OTHER: paraspinal tenderness along c spine Chest: COMMONS NORMALS: normal inspection of the chest and normal palpation of entire chest wall Resp: COMMON NORMALS: normal respiratory effort, No retractions, No use of accessory muscles and clear to auscultation bilaterally AUSCULTATION: clear to auscultation bilaterally Cardio: COMMON NORMALS: regular rate, regular rhythm and No murmurs present (Cardio) RATE: regular rate RHYTHM: regular rhythm GI: COMMON NORMALS: Normal to inspection, nondistended, normoactive bowel sounds present, Soft to palpation, non-tender and no masses PALPATION: Yes Soft to palpation Extremity: COMMON NORMALS: normal to inspection and full ROM Neuro: COMMON NORMALS: patient oriented x3, moves all extremities and no focal motor deficits Psych: COMMON NORMALS: mental status grossly normal, Normal thought process present and cooperative THOUGHT PROCESS: Normal thought process present Skin: COMMON NORMALS: no rashes or lesions noted and no wounds GENERAL SKIN EXAM: no rashes or lesions noted Course Vital Signs: Vital signs: Vital Signs Temperature 98 F 12/22/22 19:00 Pulse Rate 61 12/22/22 21:51 Respiratory Rate 18 12/22/22 21:51 Blood Pressure 159/91 12/22/22 21:51 Pulse Oximetry 99 12/22/22 21:51 Oxygen Delivery Me thod Room Air 12/22/22 21:05 MDM - Fall Medical Decision Making Patient presents with close head injury from a fall her head CT and C-spine CT shows no acute abnormalities her blood work here is all normal she has been well-appearing here at her baseline with normal vital signs she is stable for discharge she is to follow-up with PCP and return if worsening. Medical Records I reviewed the patient's medical records. Lab Data I reviewed the patient's lab results. 12/22/22 21:03 12/22/22 21:03 Radiology Impressions Cervical Spine CT 12/22/22 20:18 IMPRESSION: 1. Mild straightening of the cervical curvature. This can be associated with muscle spasm or tension. 2. Spondylotic change. 3. No fracture or acute osseous abnormality. Chest X-Ray 12/22/22 20:18 IMPRESSION: No evidence of active cardiopulmonary disease. Head CT 12/22/22 20:18 IMPRESSION: 1. Atrophic or involutional change for age, along with chronic small-vessel disease change. 2. No acute intracranial abnormality or significant change with prior exam. Laboratory Results WBC 6.9 10^3/uL (4.0-10.0) 12/22/22 21:03 RBC 5.20 10^6/uL (4.1-5.3) 12/22/22 21: Hgb 14.4 g/dL (11.5-15.3) 12/22/22 21: Hct 44.6 % (37.0-47.0) 12/22/22 21: MCV 85.8 fl (81-99) 12/22/22: MCH 27.7 pg (28.0-34.0) L 12/22/22: MCHC 32.3 g/dL (30.0-36.0) 12/22/22: RDW 14.0 % (12.1-15.1) 12/22/22: Plt Count 196 10^3/cmm (130-400) 12/22/22 21: MPV 10.3 fL (7.4-10.4) 12/22/22 21: Neut % (Auto) 64.4 % 12/22/22: Lymph % (Auto) 26.8 % 12/22/22 21: Mckean % (Auto) 6.9 % 12/22/22: Eos % (Auto) 1.0 % 12/22/22: Baso % (Auto) 0.6 % 12/22/22: Neut # (Auto) 4.47 10^3/uL (1.8-7.7) 12/22/22 21: Lymph # (Auto) 1.9 10^3/uL (0.8-4.8) 12/22/22: Mckean # (Auto) 0.5 10^3/uL (0.2-0.9) 12/22/22: Eos # (Auto) 0.1 10^3/uL (0.0-0.8) 12/22/22: Baso # (Auto) 0.0 10^3/uL (0.0-0.1) 12/22/22 21: Nucleated RBC % (auto) 0 % 12/22/22: Nucleated RBCs # 0.0 /100WBC 12/22/22: PT 13.40 SECONDS (12.1-14.9) 12/22/22 21:03 INR 0.99 (0.8-1.2) 12/22/22 21:03 Sodium 139 mmol/L (136-145) 12/22/22 21:03 Potassium 5.4 mmol/L (3.5-5.1) H 12/22/22 21:03 Chloride 104 mmol/L (98-107) 12/22/22 21:03 Carbon Dioxide 22 mmol/L (22-29) 12/22/22 21:03 Anion Gap 18.4 (5-19) 12/22/22 21:03 BUN 19 mg/dL (8-23) 12/22/22 21:03 Creatinine 0.9 mg/dL (0.5-0.9) 12/22/22 21:03 GFR Calculation Not Reportable 12/22/22 21:03 Glucose 91 mg/dL (65-115) 12/22/22 21:03 Calculated Osmolality 290 mOsm/kg (285-295) 12/22/22 21:03 Calcium 9.4 mg/dL (8.5-10.5) 12/22/22 21:03 Total Bilirubin 0.2 mg/dL (0.15-1.2) 12/22/22 21:03 AST 22 U/L (0-32) 12/22/22 21:03 ALT 11 U/L (0-33) 12/22/22 21:03 Alkaline Phosphatase 63 U/L (35-105) 12/22/22 21:03 Total Protein 8.2 g/dL (6.6-8.7) 12/22/22 21:03 Albumin 4.6 g/dL (3.5-5.2) 12/22/22 21:03 Globulin 3.6 g/dL (1.3-4.6) 12/22/22 21:03 EKG Data EKG 1: I personally reviewed and interpreted this EKG as follows: EKG interpretation date: 12/22/22 EKG interpretation time: 20:30 Interpretation: nsr hr [address] or t wave abnormalities qrs 99 qtc 412 Discharge Plan Discharge Patient Disposition: Home Clinical Impression: CHI (closed head injury), Fall Condition: Stable Prescriptions: No Action lidocaine 5 % Adhesive Patch,Medicated 1 patch topical [id number] Qty: 30 0RF Discharge Orders: Discharge ED (Routine); Ordered 12/22/22 Ordered By: Man Mccloud Discharge Diet: Advance as tolerated Discharge Activity: Resume usual activity Patient Instructions: Head Injury (ED) Coding Level of Care Code ED Topology Professor for Emily Rowley
[2022-12-22 21:09] LABS: Basophils % 0.6 %; Eosinophils # 0.1 10^3/uL (0.0-0.8); Hematocrit 44.6 % (37.0-47.0); Hemoglobin 14.4 g/dL (11.5-15.3); Lymphocytes # 1.9 10^3/uL (0.8-4.8); Lymphocytes % 26.8 %; Mean Corpuscular HGB Conc 32.3 g/dL (30.0-36.0); Mean Corpuscular Hemoglobin 27.7 pg (28.0-34.0); Mean Corpuscular Volume 85.8 fl (81-99); Mean Platelet Volume 10.3 fL (7.4-10.4); Monocytes # 0.5 10^3/uL (0.2-0.9); Monocytes % 6.9 %; Neutrophils # 4.47 10^3/uL (1.8-7.7); Neutrophils % 64.4 %; Nucleated Red Blood Cells % 0 %; Platelet Count 196 10^3/cmm (130-400); White Blood Count 6.9 10^3/uL (4.0-10.0)
[2022-12-22 21:28] LABS: INR 0.99 (0.8-1.2)
[2022-12-22 21:39] LABS: Albumin Level 4.6 g/dL (3.5-5.2); Alkaline Phosphatase 63 U/L (35-105); Blood Urea Nitrogen 19 mg/dL (8-23); Calcium 9.4 mg/dL (8.5-10.5); Carbon Dioxide 22 mmol/L (22-29); Chloride 104 mmol/L (98-107); Globulin 3.6 g/dL (1.3-4.6); Glucose 91 mg/dL (65-115); Osmolality Calculated 290 mOsm/kg (285-295); Sodium 139 mmol/L (136-145); Total Bilirubin 0.2 mg/dL (0.15-1.2); Total Protein 8.2 g/dL (6.6-8.7)
[2022-12-22 21:46] LABS: Anion Gap 18.4 (5-19); Aspartate Amino Transferase 22 U/L (0-32); Potassium 5.4 mmol/L (3.5-5.1)
[2022-12-22 21:47] LABS: Alanine Aminotransferase 11 U/L (0-33)
[2022-12-22 21:51] VITALS: BP 159/91; PULSE 61; RESP 18; O2SAT 99
--- NOTE | 2022-12-23 12:52 | DCPLANNER ---
manager programming unable to speak with patient at this time about a primary care physician.
--- NOTE | 2023-01-18 11:54 | DCPLANNER ---
manager of employee relations called patient due to no primary care physician - unable to speak with patient at this time
== END 2022-12-22 22:01 | disposition home or self-care (01) ==
PROVIDERS: Emergency Provider Emergency Medicine
DX: S09.8XXA Other specified injuries of head, initial encounter (principal); Z86.73 Personal history of transient ischemic attack (TIA), and cerebral infarction without residual deficits; W18.39XA Other fall on same level, initial encounter; Z91.81 History of falling
CPT/HCPCS: 36415; 70450; 71045; 72125; 80053; 85025; 85610; 93005; 99285